=== PATIENT | male | born 1950 | race Two or more races ===

== ENCOUNTER → 2017-01-20 | Outpatient (CLI) | payer MEDICARE, OTHER ==
[~2017-01-20] MED LIST: AMLO5TAB2 PO; CLOP75TA28 PO; FENO134C PO; FURO20TA3 PO; HYDR-4663 PO; MET50T PO; METF500T PO; NOR10T; POTA10TA75 PO; RANO1000 PO
[2017-01-20 15:00] VITALS: BP 108/62
[2017-01-20 16:19] LABS: Basophils # (auto) 0.1 uL; Basophils % (auto) 0.6 % (0.0-2.0); CONDITION Y; Eosinophils # (auto) 0.7 uL; Hematocrit 42.8 % (41.0-53.0); Hemoglobin 14.6 g/dL (13.5-17.5); Lymphocytes # (auto) 1.4 uL; Lymphocytes % (auto) 10.5 % (10.0-50.0); Mean Corpuscular Hemoglobin 28.8 pg (28.0-32.0); Mean Corpuscular Hgb Conc. 34.2 g/dL (32.0-36.0); Mean Corpuscular Volume 84.3 fL (80.0-100.0); Mean Platelet Volume 10.9 fL (7.4-10.4); Monocytes # (auto) 1.1 uL; Monocytes % (auto) 8.1 % (0.0-12.0); Neutrophils % (auto) 75.8 % (37.0-80.0); Platelet Count (auto) 200 10^3/uL (140-450); Red Cell Distribution Width 17.6 % (11.6-16.0); SUSPECT SEE PRINTOUT; White Blood Cell 13.2 10^3/uL (4.4-10.8)
[2017-01-20 16:34] LABS: BUN/Creatinine Ratio 20.6; Calcium 9.3 mg/dL (8.5-10.1); Magnesium 2.5 mg/dL (1.6-2.6); Potassium 4.4 mmol/L (3.5-5.1)
[2017-01-20 16:41] LABS: B-Type Natriuretic Peptide 256.55 pg/mL (0-100)
[2017-01-20 16:45] LABS: Temperature: 22.2 C (20.0-25.0)
== END | disposition home or self-care (01) ==
LOC: CHF HDHVI 13:37
PROVIDERS: ATTEND Internal Medicine Cardiovascular Disease
DX: I11.0 Hypertensive heart disease with heart failure (principal); I50.9 Heart failure, unspecified; D64.9 Anemia, unspecified; E83.42 Hypomagnesemia; E11.9 Type 2 diabetes mellitus without complications; E78.5 Hyperlipidemia, unspecified; R94.2 Abnormal results of pulmonary function studies; Z95.5 Presence of coronary angioplasty implant and graft
CPT/HCPCS: 36415; 80048; 83735; 83880; 85025; 93005; 93701; 94620; G0463

== ENCOUNTER → 2017-01-24 | Outpatient (CLI) | payer MEDICARE, OTHER ==
[2017-01-24 09:30] VITALS: BP 118/58
== END | disposition home or self-care (01) ==
LOC: CHF HDHVI 11:32
PROVIDERS: ATTEND Internal Medicine Cardiovascular Disease
DX: I11.0 Hypertensive heart disease with heart failure (principal); I50.9 Heart failure, unspecified; I25.10 Atherosclerotic heart disease of native coronary artery without angina pectoris; E78.5 Hyperlipidemia, unspecified
CPT/HCPCS: G0463

== ENCOUNTER → 2017-02-14 | Outpatient (CLI) | payer MEDICARE, OTHER ==
[~2017-02-14] MED LIST changes: +CYANOCOBALAMIN (B-12) 1000 MCG/1 ML VIAL IM ONE; +CYANOCOBALAMIN (B-12) 1000 MCG/1 ML VIAL ONE
[2017-02-14 08:49] VITALS: BP 127/65
[2017-02-14 09:00] VITALS: BP 124/67
[2017-02-14 12:19] LABS: Basophils # (auto) 0 uL; Basophils % (auto) 0.5 % (0.0-2.0); CONDITION Y; Eosinophils # (auto) 0.7 uL; Eosinophils % (auto) 7.3 % (0.0-7.0); Hematocrit 44.7 % (41.0-53.0); Hemoglobin 15.1 g/dL (13.5-17.5); Lymphocytes # (auto) 1.1 uL; Lymphocytes % (auto) 12.3 % (10.0-50.0); Mean Corpuscular Hemoglobin 28.3 pg (28.0-32.0); Mean Corpuscular Hgb Conc. 33.7 g/dL (32.0-36.0); Mean Corpuscular Volume 83.8 fL (80.0-100.0); Monocytes # (auto) 0.7 uL; Monocytes % (auto) 7.9 % (0.0-12.0); Neutrophils # (auto) 6.5 uL; Platelet Count (auto) 174 10^3/uL (140-450); Red Cell Distribution Width 16.7 % (11.6-16.0)
[2017-02-14 12:23] LABS: Potassium 4.3 mmol/L (3.5-5.1)
== END | disposition home or self-care (01) ==
LOC: CHF HDHVI 08:10
PROVIDERS: ATTEND Internal Medicine Cardiovascular Disease
DX: E87.6 Hypokalemia (principal); R94.4 Abnormal results of kidney function studies; D64.9 Anemia, unspecified; I13.0 Hypertensive heart and chronic kidney disease with heart failure and stage 1 through stage 4 chronic kidney disease, or unspecified chronic kidney disease; I50.9 Heart failure, unspecified; N18.2 Chronic kidney disease, stage 2 (mild)
CPT/HCPCS: 36415; 82565; 84132; 84520; 85025; 96372; G0463; J3420

== ENCOUNTER → 2017-03-21 | Outpatient (CLI) | payer MEDICARE, OTHER ==
[~2017-03-21] MED LIST changes: -CYANOCOBALAMIN (B-12) 1000 MCG/1 ML VIAL IM ONE; -CYANOCOBALAMIN (B-12) 1000 MCG/1 ML VIAL ONE
[2017-03-21 08:55] VITALS: BP 111/57
== END | disposition home or self-care (01) ==
LOC: CHF HDHVI 08:36
PROVIDERS: ATTEND Internal Medicine Cardiovascular Disease
DX: I13.0 Hypertensive heart and chronic kidney disease with heart failure and stage 1 through stage 4 chronic kidney disease, or unspecified chronic kidney disease (principal); I50.9 Heart failure, unspecified; N18.2 Chronic kidney disease, stage 2 (mild); K21.9 Gastro-esophageal reflux disease without esophagitis; I25.10 Atherosclerotic heart disease of native coronary artery without angina pectoris; Z95.1 Presence of aortocoronary bypass graft
CPT/HCPCS: 82962; 93701; G0463

== ENCOUNTER → 2017-06-27 | Outpatient (CLI) | payer MEDICARE, OTHER ==
[~2017-06-27] MED LIST changes: +ASPI81TA27 PO; +ATOR80TA PO; -HYDR-4663 PO; +HYDR-4683 PO; +ISOS1TAB37 PO; +IVAB1.7T PO; +METO50TA7 PO; -NOR10T; +NOR10T PO; +RANO500T2 PO; +SACU1TAB PO
[2017-06-27 11:00] VITALS: BP 139/65
[2017-06-27 11:42] VITALS: BP 127/59
[2017-06-27 16:32] LABS: Basophils # (auto) 0 uL; Basophils % (auto) 0.5 % (0.0-2.0); Eosinophils # (auto) 0.2 uL; Eosinophils % (auto) 2.5 % (0.0-7.0); Hematocrit 50.5 % (41.0-53.0); Hemoglobin 17.1 g/dL (13.5-17.5); Lymphocytes # (auto) 1.3 uL; Lymphocytes % (auto) 13.2 % (10.0-50.0); Mean Corpuscular Hemoglobin 30.4 pg (28.0-32.0); Mean Corpuscular Volume 89.6 fL (80.0-100.0); Monocytes # (auto) 1.1 uL; Monocytes % (auto) 10.8 % (0.0-12.0); Neutrophils # (auto) 7.1 uL; Nucleated Red Blood Cells % 0.2 %; Platelet Count (auto) 145 10^3/uL (140-450); Red Blood Cells 5.63 10^6/uL (4.5-5.90); Red Cell Distribution Width 15.7 % (11.8-14.3); White Blood Cell 9.7 10^3/uL (4.4-10.8)
[2017-06-27 16:36] LABS: BUN/Creatinine Ratio 20.4; Calcium 8.8 mg/dL (8.5-10.1); Magnesium 2.3 mg/dL (1.6-2.6); Potassium 4.7 mmol/L (3.5-5.1)
== END | disposition home or self-care (01) ==
LOC: CHF HDHVI 10:23
PROVIDERS: ATTEND Internal Medicine Cardiovascular Disease
DX: I11.0 Hypertensive heart disease with heart failure (principal); I50.9 Heart failure, unspecified; D64.9 Anemia, unspecified; E55.9 Vitamin D deficiency, unspecified; D51.9 Vitamin B12 deficiency anemia, unspecified; E11.9 Type 2 diabetes mellitus without complications; I25.10 Atherosclerotic heart disease of native coronary artery without angina pectoris; I48.91 Unspecified atrial fibrillation; Z95.1 Presence of aortocoronary bypass graft
CPT/HCPCS: 36415; 80048; 82306; 82607; 83036; 83735; 83880; 85025; 93701; 94618; G0463

== ENCOUNTER → 2017-07-04 | Outpatient (CLI) | payer MEDICARE, OTHER | END | disposition home or self-care (01) | LOC: Rad HDHVI 15:54 | PROVIDERS: ATTEND Internal Medicine Cardiovascular Disease | DX: R07.89 Other chest pain (principal) | CPT/HCPCS: 93306 ==

== ENCOUNTER → 2017-07-05 | Outpatient (CLI) | payer MEDICARE, OTHER ==
[~2017-07-05] VITALS: Ht 157.5 cm; Wt 81.6 kg
[~2017-07-05] MED LIST changes: +ADENOSINE 69 MG in GIVE UN-DILUTED 0 ML IV ONE; +ADENOSINE 90 MG/30 ML INJ IV ONE
== END | disposition home or self-care (01) ==
LOC: Rad HDHVI 14:11
PROVIDERS: ATTEND Internal Medicine Cardiovascular Disease
DX: Z09 Encounter for follow-up examination after completed treatment for conditions other than malignant neoplasm (principal); I10 Essential (primary) hypertension; I25.10 Atherosclerotic heart disease of native coronary artery without angina pectoris; E11.9 Type 2 diabetes mellitus without complications; E78.00 Pure hypercholesterolemia, unspecified; Z95.1 Presence of aortocoronary bypass graft
CPT/HCPCS: 78452; 93005; 96374; 96375; A9500; J0153

== ENCOUNTER → 2017-08-07 | Outpatient (CLI) | payer MEDICARE, OTHER ==
[~2017-08-07] MED LIST changes: -ADENOSINE 69 MG in GIVE UN-DILUTED 0 ML IV ONE; -ADENOSINE 90 MG/30 ML INJ IV ONE
[2017-08-07 11:00] VITALS: BP 110/49
[2017-08-07 11:40] VITALS: BP 106/57
[2017-08-07 16:51] LABS: Basophils # (auto) 0 uL; Basophils % (auto) 0.4 % (0.0-2.0); Eosinophils # (auto) 0.2 uL; Eosinophils % (auto) 2.5 % (0.0-7.0); Hematocrit 44.6 % (41.0-53.0); Lymphocytes # (auto) 1.4 uL; Mean Corpuscular Hemoglobin 30.6 pg (28.0-32.0); Mean Corpuscular Hgb Conc. 33.7 g/dL (32.0-36.0); Mean Corpuscular Volume 90.7 fL (80.0-100.0); Monocytes # (auto) 0.7 uL; Neutrophils # (auto) 4.9 uL; Neutrophils % (auto) 68.1 % (37.0-80.0); Nucleated Red Blood Cells % 0.2 %; Red Blood Cells 4.91 10^6/uL (4.5-5.90); Red Cell Distribution Width 14.5 % (11.8-14.3); White Blood Cell 7.1 10^3/uL (4.4-10.8)
[2017-08-07 17:07] LABS: BUN/Creatinine Ratio 23.4; Potassium 4.5 mmol/L (3.5-5.1)
[2017-08-07 17:31] LABS: Platelet Count (auto) 138 10^3/uL (140-450)
[2017-08-07 18:21] LABS: INR 1.12 (0.9-1.15); Partial Thromboplastin Time 33.6 sec (22.64-33.71); Prothrombin Time 12.2 sec (9.37-12.3)
== END | disposition home or self-care (01) ==
LOC: Rad HDHVI 10:44
PROVIDERS: ATTEND Internal Medicine Cardiovascular Disease
DX: Z01.818 Encounter for other preprocedural examination (principal); I70.0 Atherosclerosis of aorta; E78.00 Pure hypercholesterolemia, unspecified; D64.9 Anemia, unspecified; R79.1 Abnormal coagulation profile; I10 Essential (primary) hypertension; Z95.1 Presence of aortocoronary bypass graft
CPT/HCPCS: 36415; 80048; 82962; 85025; 85610; 85730; 93005; G0463; 71046

== ENCOUNTER 2017-08-10 08:33 | Day surgery (SDC) | payer MEDICARE, OTHER ==
[~2017-08-10 08:33] MED LIST changes: -ASPI81TA27 PO; -ATOR80TA PO; -ISOS1TAB37 PO; -IVAB1.7T PO; -METO50TA7 PO; -RANO500T2 PO; -SACU1TAB PO
[2017-08-10] MEDS ORDERED: LIDOCAINE 2%HCL (LOCAL ANESTH.) INJ 20ML MDV ONE (10:32)
[2017-08-10] MEDS ORDERED: IOHEXOL 350 MG/ML 100ML IJ ONE (10:32)
[2017-08-10] MEDS ORDERED: MIDAZOLAM HCL 1MG/1ML-2 ML VIAL ONE (10:47)
[2017-08-10] MEDS ORDERED: fentaNYL CITRATE 100 MCG/2 ML VL ONE (10:47)
[2017-08-10] MEDS ORDERED: ANGIOMAX 250 MG VIAL IV ONE (10:47)
[2017-08-10] MEDS ORDERED: SODIUM CHL 0.9% 0 ML ONE (10:48)
== END 2017-08-10 13:55 | disposition home or self-care (01) ==
LOC: CATH 08:33
PROVIDERS: ATTEND Internal Medicine Cardiovascular Disease
DX: I25.10 Atherosclerotic heart disease of native coronary artery without angina pectoris (principal); E78.5 Hyperlipidemia, unspecified; Z95.1 Presence of aortocoronary bypass graft; I50.9 Heart failure, unspecified; I10 Essential (primary) hypertension; Z86.73 Personal history of transient ischemic attack (TIA), and cerebral infarction without residual deficits; E11.9 Type 2 diabetes mellitus without complications
CPT/HCPCS: 93458; C1760; C1894; J1644; J2250; J3010; J7030; Q9967; 99152

== ENCOUNTER 2017-09-08 11:15 | Inpatient (IN) | payer MEDICARE, OTHER ==
[~2017-09-08] VITALS: Ht 157.5 cm; Wt 78.5 kg
[2017-09-08 11:59] LABS: Basophils # (auto) 0 uL; Basophils % (auto) 0.6 % (0.0-2.0); Eosinophils # (auto) 0.3 uL; Eosinophils % (auto) 4.3 % (0.0-7.0); Hematocrit 48.4 % (41.0-53.0); Hemoglobin 16.5 g/dL (13.5-17.5); Lymphocytes # (auto) 0.6 uL; Lymphocytes % (auto) 7.3 % (10.0-50.0); Mean Corpuscular Hemoglobin 30.5 pg (28.0-32.0); Mean Corpuscular Hgb Conc. 34.1 g/dL (32.0-36.0); Mean Corpuscular Volume 89.6 fL (80.0-100.0); Monocytes % (auto) 12.7 % (0.0-12.0); Neutrophils # (auto) 5.8 uL; Neutrophils % (auto) 75.1 % (37.0-80.0); Nucleated Red Blood Cells % 0.1 %; Platelet Count (auto) 125 10^3/uL (140-450); Red Blood Cells 5.41 10^6/uL (4.5-5.90); Red Cell Distribution Width 13.9 % (11.8-14.3); White Blood Cell 7.7 10^3/uL (4.4-10.8)
[2017-09-08 12:10] LABS: INR 1.17 (0.9-1.15); Partial Thromboplastin Time 32.7 sec (22.64-33.71); Prothrombin Time 12.8 sec (9.37-12.3)
[2017-09-08 12:37] LABS: Alanine Aminotransferase 28 U/L (16-61); Albumin 4.2 g/dL (3.4-5.0); Alkaline Phosphatase 71 U/L (45-117); Anion Gap 9 (5-15); Aspartate Aminotransferase 47 U/L (15-37); BUN/Creatinine Ratio 14.4; Bilirubin, Total 0.8 mg/dL (0.2-1.0); Blood Urea Nitrogen 18 mg/dL (7-18); Calcium 8.8 mg/dL (8.5-10.1); Carbon Dioxide 24 mmol/L (21-32); Chloride 103 mmol/L (98-107); GFR African American 74 mL/min; GFR Non-African American 61 mL/min; Glucose 108 mg/dL (74-106); Magnesium 2.3 mg/dL (1.6-2.6); Potassium 5.2 mmol/L (3.5-5.1); Sodium 136 mmol/L (136-145); Total Protein 8.3 g/dL (6.4-8.2)
[2017-09-08] MEDS ORDERED: FUROSEMIDE 40 MG/4 ML VIAL IV ONE (13:15)
[2017-09-08] MEDS ORDERED: LACTULOSE 20Gm/30ML SOLN PO PRN (17:00)
[2017-09-08] MEDS ORDERED: ACETAMINOPHEN 500 MG TAB PO PRN (17:00)
[2017-09-08] MEDS ORDERED: PROMETHAZINE HCL 25 MG/ML 1ML IV PRN (17:00)
[2017-09-08] MEDS ORDERED: LORazepam 0.5 MG TAB PO PRN (17:00)
[2017-09-08] MEDS ORDERED: NITROGLYCERIN 0.4 MG SL TAB SL PRN (17:00)
[2017-09-08] MEDS: InsuLIN REG 1unit/0.01ml Soln (100units/ml) SC SCH ×2 (17:00→22:00)
[2017-09-08] MEDS ORDERED: DEXTROSE (50%) 50ML SYRG IV PRN (17:00)
[2017-09-08] MEDS: ACCU-CHEK COMFORT CURVE STRIP VI SCH ×2 (17:26→22:02)
[2017-09-08] MEDS: NITROGLYCERIN 0.2MG/HR TOPICAL PATCH TD SCH (17:30)
[2017-09-08] MEDS: MORPHINE SULFATE 4 MG/ML SYR/VIAL IV PRN ×2 (17:45→22:44)
[2017-09-08] MEDS ORDERED: ALBUTEROL SULF 2.5 MG/0.5ML(0.5%) NEB SOLN NEB PRN (18:15)
[2017-09-08] MEDS: DOXYCYCLINE HYC 100MG/250ML 250 ML IV SCH (18:30)
[2017-09-08 18:44] LABS: Urine Bacteria NONE SEEN /hpf (None Seen); Urine Blood Negative /uL (Negative); Urine Specific Gravity 1.006 (1.001-1.035); Urine WBC <1 /hpf (0 - 3)
[2017-09-08 19:00] LABS: Alcohol, Urine < 3.0 mg/dL (0-5); Amphetamine Screen, Urine NEGATIVE (NEGATIVE); Barbiturate Scree,Urine NEGATIVE (NEGATIVE); Benzodiazephine Screen, Urine NEGATIVE (NEGATIVE); Cannabinoid Screen, Urine NEGATIVE (NEGATIVE); Cocaine Screen, Urine NEGATIVE (NEGATIVE); Opiate Scree,Urine POSITIVE (NEGATIVE); Phencyclidine Screen, Urine NEGATIVE (NEGATIVE)
[2017-09-08 19:40] VITALS: BP 115/64
[2017-09-08] MEDS: HYDROcodone-ACET 5/325MG TAB PO PRN (20:36)
[2017-09-08] MEDS: METOPROLOL TARTRATE 50 MG TAB PO SCH (21:59)
[2017-09-08] MEDS: amLODIPine BESYLATE 5 MG TAB PO SCH (22:00)
[2017-09-08] MEDS: TEMAZEPAM 15 MG CAP PO PRN (22:10)
[2017-09-09] MEDS: ALBUTEROL SULF 2.5 MG/0.5ML(0.5%) NEB SOLN NEB SCH ×3 (00:45→18:34)
[2017-09-09 02:01] VITALS: BP 115/64
[2017-09-09] MEDS: MORPHINE SULFATE 4 MG/ML SYR/VIAL IV PRN ×6 (04:34→21:59)
[2017-09-09] MEDS ORDERED: RANO500T2 PO (05:03)
[2017-09-09] MEDS ORDERED: METO50TA7 PO (05:03)
[2017-09-09] MEDS ORDERED: IVAB1.7T PO (05:03)
[2017-09-09] MEDS ORDERED: ISOS1TAB37 PO (05:03)
[2017-09-09] MEDS ORDERED: ASPI81TA27 PO (05:03)
[2017-09-09] MEDS ORDERED: SACU1TAB PO (05:03)
[2017-09-09] MEDS ORDERED: ATOR80TA PO (05:04)
[2017-09-09 05:42] VITALS: BP 107/64
[2017-09-09] MEDS: DOXYCYCLINE HYC 100MG/250ML 250 ML IV SCH ×2 (05:59→18:15)
[2017-09-09] MEDS: ACCU-CHEK COMFORT CURVE STRIP VI SCH ×4 (05:59→22:03)
[2017-09-09] MEDS: InsuLIN REG 1unit/0.01ml Soln (100units/ml) SC SCH ×4 (05:59→22:00)
[2017-09-09 07:37] LABS: Basophils # (auto) 0 uL; Basophils % (auto) 0.6 % (0.0-2.0); Eosinophils # (auto) 0.1 uL; Hematocrit 46.7 % (41.0-53.0); Hemoglobin 15.6 g/dL (13.5-17.5); Lymphocytes # (auto) 0.8 uL; Lymphocytes % (auto) 13.3 % (10.0-50.0); Mean Corpuscular Hemoglobin 30.1 pg (28.0-32.0); Mean Corpuscular Hgb Conc. 33.5 g/dL (32.0-36.0); Monocytes # (auto) 0.9 uL; Monocytes % (auto) 15.8 % (0.0-12.0); Neutrophils # (auto) 3.9 uL; Neutrophils % (auto) 68.3 % (37.0-80.0); Nucleated Red Blood Cells % 0.2 %; Platelet Count (auto) 113 10^3/uL (140-450); Red Blood Cells 5.19 10^6/uL (4.5-5.90); Red Cell Distribution Width 13.8 % (11.8-14.3); White Blood Cell 5.7 10^3/uL (4.4-10.8)
[2017-09-09] MEDS: HYDROcodone-ACET 5/325MG TAB PO PRN (07:47)
[2017-09-09 08:06] LABS: Albumin 3.7 g/dL (3.4-5.0); BUN/Creatinine Ratio 17.4; Bilirubin, Total 0.9 mg/dL (0.2-1.0); Calcium 8.6 mg/dL (8.5-10.1); Potassium 4.4 mmol/L (3.5-5.1); Total Protein 7.6 g/dL (6.4-8.2)
[2017-09-09 09:00] VITALS: BP 120/74
[2017-09-09] MEDS: HYDROcodone-ACET 10/325MG TAB PO PRN ×3 (09:12→16:32)
[2017-09-09] MEDS: POTASSIUM CHL 10 Meq TABLET PO SCH ×2 (09:59→22:00)
[2017-09-09] MEDS: FUROSEMIDE 20 MG TAB PO SCH ×2 (09:59→22:00)
[2017-09-09] MEDS: ENOXAPARIN SOD 40 MG/0.4 ML SYRINGE SC SCH (09:59)
[2017-09-09] MEDS: amLODIPine BESYLATE 5 MG TAB PO SCH ×2 (10:00→22:00)
[2017-09-09] MEDS ORDERED: FUROSEMIDE 40 MG/4 ML VIAL IV SCH (10:00)
[2017-09-09] MEDS ORDERED: POTASSIUM CHL 20 Meq TABLET PO SCH (10:00)
[2017-09-09] MEDS: PANTOPRAZOLE 40 MG TAB PO SCH (10:00)
[2017-09-09] MEDS: NITROGLYCERIN 0.2MG/HR TOPICAL PATCH TD SCH (10:00)
[2017-09-09] MEDS: ASPirin 81 mg TAB PO SCH (10:00)
[2017-09-09] MEDS: Fenofibrate 134 MG TAB PO SCH (10:00)
[2017-09-09] MEDS: CLOPIDOGREL BISULFATE 75 MG TAB PO SCH (10:00)
[2017-09-09] MEDS ORDERED: ENALAPRIL MALEATE 2.5 MG TAB PO SCH (10:00)
[2017-09-09] MEDS: guaiFENesin-CODEINE LIQUID 5 ML UD GT PRN ×3 (11:15→20:23)
[2017-09-09 13:00] VITALS: BP 123/76
[2017-09-09] MEDS: RANOLAZINE ER 500 MG TAB PO SCH (14:43)
[2017-09-09] MEDS: METOPROLOL TARTRATE 50 MG TAB PO SCH ×2 (14:43→22:01)
[2017-09-09 16:58] VITALS: BP 122/62
[2017-09-09 21:46] VITALS: BP 122/66
[2017-09-09] MEDS: TEMAZEPAM 15 MG CAP PO PRN (22:19)
[2017-09-10] MEDS: guaiFENesin-CODEINE LIQUID 5 ML UD GT PRN ×2 (04:26→10:19)
[2017-09-10 05:00] VITALS: BP 117/66
[2017-09-10] MEDS: ALBUTEROL SULF 2.5 MG/0.5ML(0.5%) NEB SOLN NEB SCH ×4 (05:39→18:00)
[2017-09-10] MEDS: DOXYCYCLINE HYC 100MG/250ML 250 ML IV SCH (05:54)
[2017-09-10] MEDS: InsuLIN REG 1unit/0.01ml Soln (100units/ml) SC SCH ×4 (06:10→21:22)
[2017-09-10] MEDS: ACCU-CHEK COMFORT CURVE STRIP VI SCH ×4 (06:11→21:23)
[2017-09-10] MEDS: HYDROcodone-ACET 10/325MG TAB PO PRN ×5 (07:34→22:45)
[2017-09-10] MEDS: MORPHINE SULFATE 4 MG/ML SYR/VIAL IV PRN ×3 (07:54→18:10)
[2017-09-10 09:00] VITALS: BP 98/55
[2017-09-10] MEDS: Fenofibrate 134 MG TAB PO SCH (10:00)
[2017-09-10] MEDS: ENOXAPARIN SOD 40 MG/0.4 ML SYRINGE SC SCH (10:00)
[2017-09-10] MEDS: NITROGLYCERIN 0.2MG/HR TOPICAL PATCH TD SCH (10:00)
[2017-09-10] MEDS: LEVOFLOXACIN 500MG 100 ML IV SCH (10:16)
[2017-09-10] MEDS: amLODIPine BESYLATE 5 MG TAB PO SCH ×2 (10:17→21:17)
[2017-09-10] MEDS: ASPirin 81 mg TAB PO SCH (10:17)
[2017-09-10] MEDS: FUROSEMIDE 20 MG TAB PO SCH ×2 (10:17→21:18)
[2017-09-10] MEDS: CLOPIDOGREL BISULFATE 75 MG TAB PO SCH (10:18)
[2017-09-10] MEDS: POTASSIUM CHL 10 Meq TABLET PO SCH ×2 (10:18→21:17)
[2017-09-10] MEDS: PANTOPRAZOLE 40 MG TAB PO SCH (10:18)
[2017-09-10 10:37] LABS: Basophils # (auto) 0 uL; Basophils % (auto) 0.5 % (0.0-2.0); Eosinophils # (auto) 0.3 uL; Hematocrit 47.6 % (41.0-53.0); Hemoglobin 16.1 g/dL (13.5-17.5); Lymphocytes # (auto) 0.9 uL; Lymphocytes % (auto) 12.9 % (10.0-50.0); Mean Corpuscular Hemoglobin 30.3 pg (28.0-32.0); Mean Corpuscular Hgb Conc. 33.8 g/dL (32.0-36.0); Mean Corpuscular Volume 89.6 fL (80.0-100.0); Neutrophils # (auto) 4.7 uL; Neutrophils % (auto) 68.6 % (37.0-80.0); Platelet Count (auto) 115 10^3/uL (140-450); Red Blood Cells 5.31 10^6/uL (4.5-5.90); Red Cell Distribution Width 13.9 % (11.8-14.3); White Blood Cell 6.9 10^3/uL (4.4-10.8)
[2017-09-10 10:54] LABS: Albumin 3.6 g/dL (3.4-5.0); BUN/Creatinine Ratio 20.3; Calcium 8.7 mg/dL (8.5-10.1); Potassium 4.2 mmol/L (3.5-5.1)
[2017-09-10 10:57] LABS: Bilirubin, Total 0.5 mg/dL (0.2-1.0); Total Protein 7.5 g/dL (6.4-8.2)
[2017-09-10] MEDS: METOPROLOL TARTRATE 50 MG TAB PO SCH ×2 (12:51→21:18)
[2017-09-10] MEDS: RANOLAZINE ER 500 MG TAB PO SCH (12:52)
[2017-09-10 13:00] VITALS: BP 115/51
[2017-09-10 16:32] VITALS: BP 113/63
[2017-09-10] MEDS: TEMAZEPAM 15 MG CAP PO PRN (21:17)
[2017-09-10 21:54] VITALS: BP 122/63
[2017-09-11 05:00] VITALS: BP 114/50
[2017-09-11] MEDS: ALBUTEROL SULF 2.5 MG/0.5ML(0.5%) NEB SOLN NEB SCH ×3 (05:39→11:07)
[2017-09-11] MEDS: InsuLIN REG 1unit/0.01ml Soln (100units/ml) SC SCH ×2 (06:05→11:30)
[2017-09-11] MEDS: ACCU-CHEK COMFORT CURVE STRIP VI SCH ×2 (06:07→12:00)
[2017-09-11] MEDS: HYDROcodone-ACET 10/325MG TAB PO PRN ×3 (08:01→15:18)
[2017-09-11] MEDS: MORPHINE SULFATE 4 MG/ML SYR/VIAL IV PRN ×2 (09:04→11:32)
[2017-09-11] MEDS: CARISOPRODOL 350 MG TAB PO PRN ×2 (09:07→15:18)
[2017-09-11 09:11] VITALS: BP 118/64
[2017-09-11] MEDS: ENOXAPARIN SOD 40 MG/0.4 ML SYRINGE SC SCH (10:00)
[2017-09-11] MEDS: NITROGLYCERIN 0.2MG/HR TOPICAL PATCH TD SCH (10:00)
[2017-09-11] MEDS: Fenofibrate 134 MG TAB PO SCH (10:00)
[2017-09-11] MEDS: POTASSIUM CHL 10 Meq TABLET PO SCH (10:24)
[2017-09-11] MEDS: LEVOFLOXACIN 500MG 100 ML IV SCH (10:24)
[2017-09-11] MEDS: ASPirin 81 mg TAB PO SCH (10:24)
[2017-09-11] MEDS: FUROSEMIDE 20 MG TAB PO SCH (10:25)
[2017-09-11] MEDS: PANTOPRAZOLE 40 MG TAB PO SCH (10:25)
[2017-09-11] MEDS: CLOPIDOGREL BISULFATE 75 MG TAB PO SCH (10:25)
[2017-09-11] MEDS: amLODIPine BESYLATE 5 MG TAB PO SCH (10:25)
[2017-09-11] MEDS: RANOLAZINE ER 500 MG TAB PO SCH (10:27)
[2017-09-11 12:54] VITALS: BP 118/4
== END 2017-09-11 15:30 | disposition home or self-care (01) | DRG 292 ==
LOC: ER 11:15 → TELE 11:16 → TELE-CENTR 19:43
PROVIDERS: ADMIT Internal Medicine; ATTEND Family Medicine
DX: I11.0 Hypertensive heart disease with heart failure (principal); N17.9 Acute kidney failure, unspecified; D69.6 Thrombocytopenia, unspecified; Z95.1 Presence of aortocoronary bypass graft; I50.33 Acute on chronic diastolic (congestive) heart failure; E11.9 Type 2 diabetes mellitus without complications; E78.5 Hyperlipidemia, unspecified; I25.10 Atherosclerotic heart disease of native coronary artery without angina pectoris; I70.0 Atherosclerosis of aorta; J20.9 Acute bronchitis, unspecified; K21.9 Gastro-esophageal reflux disease without esophagitis; Z82.49 Family history of ischemic heart disease and other diseases of the circulatory system; Z83.3 Family history of diabetes mellitus
CPT/HCPCS: 36415; 71046; 80053; 80061; 80307; 81001; 82550; 82962; 83036; 83735; 83880; 84443; 84484; 85025; 85379; 85610; 85652; 85730; 86141; 93005; 94640; 96361; 96374; J1956; J3490

== ENCOUNTER → 2017-10-05 | Outpatient (CLI) | payer MEDICARE, OTHER ==
[~2017-10-05] MED LIST changes: +ASPI81TA27 PO; +ATOR80TA PO; -FENO134C PO; -HYDR-4683 PO; +ISOS1TAB37 PO; +IVAB1.7T PO; -MET50T PO; +METO50TA7 PO; -RANO1000 PO; +RANO500T2 PO; +SACU1TAB PO
== END | disposition home or self-care (01) ==
LOC: Rad HDHVI 13:39
PROVIDERS: ATTEND Internal Medicine Cardiovascular Disease
DX: I08.1 Rheumatic disorders of both mitral and tricuspid valves (principal); I20.9 Angina pectoris, unspecified; I25.2 Old myocardial infarction; E11.9 Type 2 diabetes mellitus without complications; E78.5 Hyperlipidemia, unspecified; I10 Essential (primary) hypertension
CPT/HCPCS: 93306

== ENCOUNTER → 2017-10-23 | Outpatient (CLI) | payer MEDICARE, OTHER ==
[~2017-10-23] VITALS: Ht 157.5 cm; Wt 79.4 kg
== END | disposition home or self-care (01) ==
LOC: Rad HDHVI 09:36
PROVIDERS: ATTEND Internal Medicine Cardiovascular Disease
DX: I25.5 Ischemic cardiomyopathy (principal); I11.0 Hypertensive heart disease with heart failure; I50.23 Acute on chronic systolic (congestive) heart failure; I20.9 Angina pectoris, unspecified; E11.9 Type 2 diabetes mellitus without complications; K21.9 Gastro-esophageal reflux disease without esophagitis; E78.5 Hyperlipidemia, unspecified
CPT/HCPCS: 78472; 96374; A9505; 96375

== ENCOUNTER → 2017-11-15 | Outpatient (CLI) | payer MEDICARE, OTHER ==
[2017-11-15 08:45] VITALS: BP 126/69
[2017-11-15 09:16] VITALS: BP 135/72
[2017-11-15 12:06] LABS: Basophils # (auto) 0 uL; Basophils % (auto) 0.5 % (0.0-2.0); Eosinophils # (auto) 0.3 uL; Eosinophils % (auto) 3.7 % (0.0-7.0); Hematocrit 49.7 % (41.0-53.0); Hemoglobin 17.2 g/dL (13.5-17.5); Lymphocytes # (auto) 1.6 uL; Lymphocytes % (auto) 19.9 % (10.0-50.0); Mean Corpuscular Hemoglobin 30.5 pg (28.0-32.0); Mean Corpuscular Hgb Conc. 34.6 g/dL (32.0-36.0); Mean Corpuscular Volume 88.2 fL (80.0-100.0); Monocytes # (auto) 0.8 uL; Monocytes % (auto) 10.1 % (0.0-12.0); Neutrophils # (auto) 5.3 uL; Neutrophils % (auto) 65.8 % (37.0-80.0); Nucleated Red Blood Cells % 0.4 %; Platelet Count (auto) 118 10^3/uL (140-450); Red Blood Cells 5.63 10^6/uL (4.5-5.90); Red Cell Distribution Width 14.8 % (11.8-14.3); White Blood Cell 8.1 10^3/uL (4.4-10.8)
[2017-11-15 12:18] LABS: INR 1.07 (0.9-1.15); Partial Thromboplastin Time 32.2 sec (23.78-33.04); Prothrombin Time 11.4 sec (9.27-12.13)
[2017-11-15 12:28] LABS: BUN/Creatinine Ratio 22.5; Calcium 8.5 mg/dL (8.5-10.1); Potassium 4.4 mmol/L (3.5-5.1)
== END | disposition home or self-care (01) ==
LOC: Rad HDHVI 08:36
PROVIDERS: ATTEND Internal Medicine Cardiovascular Disease
DX: Z01.818 Encounter for other preprocedural examination (principal); E11.9 Type 2 diabetes mellitus without complications; I25.10 Atherosclerotic heart disease of native coronary artery without angina pectoris; I70.0 Atherosclerosis of aorta; E78.5 Hyperlipidemia, unspecified; K21.9 Gastro-esophageal reflux disease without esophagitis; Z79.899 Other long term (current) drug therapy
CPT/HCPCS: 36415; 71046; 80048; 85025; 85610; 85730; 93005; G0463

== ENCOUNTER 2020-04-25 14:19 | Inpatient (IN) | payer MEDICARE, OTHER ==
[~2020-04-25] VITALS: Ht 157.5 cm; Wt 82.1 kg
[~2020-04-25 14:19] MED LIST changes: +AMLO5TAB15 PO; -AMLO5TAB2 PO; +ASPI-543 PO; -ASPI81TA27 PO; +METO-6 PO; -METO50TA7 PO
[2020-04-25 15:32] LABS: Basophils # (auto) 0.1 10 ^3/uL (0-0.2); Basophils % (auto) 0.9 % (0.0-2.0); Eosinophils # (auto) 0.3 10 ^3/uL (0-0.8); Eosinophils % (auto) 2.9 % (0.0-7.0); Hematocrit 46.3 % (41.0-53.0); Lymphocytes # (auto) 1.1 10 ^3/uL (0.4-5.4); Lymphocytes % (auto) 12.8 % (10.0-50.0); Mean Corpuscular Hemoglobin 30.3 pg (28.0-32.0); Mean Corpuscular Hgb Conc. 34.6 g/dL (32.0-36.0); Mean Corpuscular Volume 87.7 fL (80.0-100.0); Monocytes # (auto) 0.9 10 ^3/uL (0-1.3); Monocytes % (auto) 9.8 % (0.0-12.0); Neutrophils # (auto) 6.5 10 ^3/uL (1.6-8.6); Neutrophils % (auto) 73.6 % (37.0-80.0); Nucleated Red Blood Cells % 0.2 %; Platelet Count (auto) 140 10^3/uL (140-450); Red Blood Cells 5.28 10^6/uL (4.5-5.90); Red Cell Distribution Width 14.2 % (11.8-14.3); White Blood Cell 8.8 10^3/uL (4.4-10.8)
[2020-04-25] MEDS ORDERED: ONDANSETRON HCL 4 MG/2 ML VIAL IV ONE (15:45)
[2020-04-25] MEDS ORDERED: MORPHINE SULF INJ 2 MG/ML SYRINGE 1ML IV ONE ×2 (15:45→17:00)
[2020-04-25 15:50] LABS: Albumin 4.1 g/dL (3.4-5.0); Anion Gap 5 (5-15); Blood Urea Nitrogen 23 mg/dL (7-18); Calcium 8.8 mg/dL (8.5-10.1); Carbon Dioxide 24 mmol/L (21-32); Chloride 110 mmol/L (98-107); Glucose 105 mg/dL (74-106); Magnesium 2.5 mg/dL (1.6-2.6); Sodium 139 mmol/L (136-145)
[2020-04-25 15:52] LABS: INR 1.18 (0.9-1.15); Partial Thromboplastin Time 30.4 sec (23.0-31.2)
[2020-04-25 15:55] LABS: Alanine Aminotransferase 36 U/L (16-61); Alkaline Phosphatase 109 U/L (45-117); Aspartate Aminotransferase 28 U/L (15-37); BUN/Creatinine Ratio 21.7; Bilirubin, Total 0.7 mg/dL (0.2-1.0); GFR African American 89 mL/min; GFR Non-African American 74 mL/min; Total Protein 7.4 g/dL (6.4-8.2)
[2020-04-25] MEDS ORDERED: DEXTROSE (50%) 50ML SYRG IV PRN (18:45)
[2020-04-25] MEDS ORDERED: MORPHINE SULF INJ 2 MG/ML SYRINGE 1ML IV PRN (18:45)
[2020-04-25] MEDS ORDERED: ACETAMINOPHEN 500 MG TAB PO PRN (18:45)
[2020-04-25] MEDS ORDERED: HYDROcodone-ACET 10/325MG TAB PO PRN (18:45)
[2020-04-25] MEDS ORDERED: ENOXAPARIN SOD 40 MG/0.4 ML SYRINGE SC SCH (18:52)
[2020-04-25] MEDS: FUROSEMIDE 40 MG TAB PO SCH (19:23)
[2020-04-25] MEDS: NITROGLYCERIN 0.4 MG SL TAB SL PRN ×3 (19:26→19:42)
[2020-04-25] MEDS: MORPHINE SULF INJ 2 MG/ML SYRINGE 1ML IV PRN ×2 (19:51→20:24)
--- NOTE | 2020-04-25 20:56 | NUR ---
Chest Pain Reassessment Patient states pain level 5 on a pain scale of 0-10. Per patient, he is comfortable and has no complaints. Will continue to monitor Q1 and PRN.
[2020-04-25] MEDS: RANOLAZINE ER 500 MG TAB PO SCH (21:20)
[2020-04-25] MEDS: POTASSIUM CHL 10 Meq TABLET PO SCH (21:21)
[2020-04-25] MEDS: SACUBITRIL-VALSARTAN 24mg/26mg TAB PO SCH (21:21)
[2020-04-25] MEDS: ACCU-CHEK COMFORT CURVE STRIP VI SCH (21:22)
[2020-04-25] MEDS: InsuLIN REG 1unit/0.01ml Soln (100units/ml) SC SCH (21:24)
[2020-04-25 22:00] VITALS: BP 146/80
[2020-04-25] MEDS ORDERED: TEMAZEPAM 15 MG CAP PO PRN (22:00)
[2020-04-25 22:11] VITALS: BP 146/80
--- NOTE | 2020-04-25 22:30 | NUR ---
Chest Pain Reassessment Patient states that his chest pain increased to a 7 on a pain scale of 0-10/ pressure-like, non radiating. VS are within baseline, patient on 2L NC and has even and unlabored breathing Hospitalist paged, ECG done and shown to hospitalist, Per MD orders x1 STAT trop and give 2mg Morphine IVP, will carry out Will continue to monitor patient Q1 and PRN.
--- NOTE | 2020-04-25 22:38 | NUR ---
Telemetry admit from ER Patient admitted to Telemetry unit. Patient oriented to primary RN, unit, room, bed, and unit policies regarding patient care and visiting hours. Patient now on continuous telemetry monitoring, tele box # 50 and telemetry reading on arrival to unit is sinus rhythm. Patient placed on bedside oxygen 2L NC and tolerating well, weighed by bedscale and encouraged to call if they need something. All questions and concerns addressed, patient verbalized understanding. Safety precautions maintained bed is in lowest position and locked, bed rails x2. Call light within reach. Addendum: 04/26/20 at 0249 by Cyndie Aguilera RN TIME 2037 DATE 04/25/2020
--- NOTE | 2020-04-25 23:10 | NUR ---
Chest pain reassessment Per patient, chest pain is decreasing and is at a 5 on a pain scale of 0-10. No s/s of distress or SOB. Will continue to monitor Q1 and PRN.
--- NOTE | 2020-04-26 00:05 | NUR ---
Rounding Patient resting in bed, no s/s of distress or SOB noted. Will continue to monitor Q1 and PRN.
[2020-04-26 05:00] VITALS: BP 119/69
--- NOTE | 2020-04-26 05:40 | NUR ---
ECG done per MD orders. Placed in hard chart. Will continue to monitor patient Q1 and PRN. No complaints at this time.
[2020-04-26] MEDS: FUROSEMIDE 40 MG TAB PO SCH (06:34)
[2020-04-26] MEDS: InsuLIN REG 1unit/0.01ml Soln (100units/ml) SC SCH ×2 (06:35→11:30)
[2020-04-26] MEDS: ACCU-CHEK COMFORT CURVE STRIP VI SCH ×2 (06:35→11:30)
--- NOTE | 2020-04-26 06:40 | NUR ---
Patient refused insulin Blood sugar 138. Per patient, he does not take any insulin at home and states "I don't need it." Provided education on the uses and side effects of insulin. Patient still refused. Will continue to monitor Q1 and PRN.
--- NOTE | 2020-04-26 07:24 | NUR ---
End of Shift Note Endorsed care to dayshift RN. At this time patient has no s/s of distress or SOB.
--- NOTE | 2020-04-26 07:35 | NUR ---
Opening Shift Note Assumed care of patient, awake and alert. No S/S of distress/SOB or pain. Instructed on POC and to call for assist PRN, will continue to monitor for changes Q1hr and PRN.
[2020-04-26 09:01] VITALS: BP 122/66
[2020-04-26] MEDS: RANOLAZINE ER 500 MG TAB PO SCH (09:52)
[2020-04-26] MEDS: POTASSIUM CHL 10 Meq TABLET PO SCH (09:52)
--- NOTE | 2020-04-26 09:53 | NUR ---
PT. REFUSED THE FOLLOWING MEDICATIONS: CORLANOR AND SACUBRITRIL/VALSARTAN. THIS RN PROVIDED TEACHING; HOWEVER, THE PT. STILL DECLINED MEDICATIONS.
[2020-04-26] MEDS: SACUBITRIL-VALSARTAN 24mg/26mg TAB PO SCH (09:54)
[2020-04-26] MEDS ORDERED: amLODIPine BESYLATE 5 MG TAB PO SCH (10:00)
[2020-04-26] MEDS ORDERED: CLOPIDOGREL BISULFATE 75 MG TAB PO SCH (10:00)
[2020-04-26] MEDS ORDERED: ISOSORBIDE DINITRATE 10 MG TAB PO SCH (10:00)
[2020-04-26] MEDS ORDERED: ASPirin 81 mg TAB PO SCH (10:00)
[2020-04-26] MEDS ORDERED: IVABRADINE 5 MG TAB PO SCH (10:00)
[2020-04-26] MEDS ORDERED: ASPirin-EC 81 mg tab PO SCH (10:00)
[2020-04-26 13:00] VITALS: BP 132/68
--- NOTE | 2020-04-26 13:30 | NUR ---
PT. REFUSED ECHO; DR. AGUILAR IS AWARE.
--- NOTE | 2020-04-26 13:33 | NUR ---
THIS RN LEFT DR. AGUILAR A MESSAGE REGARDING THE PT.'S D-DIMER OF 0.48
--- NOTE | 2020-04-26 16:11 | NUR ---
PT. LEFT AMA; SPOKE TO DAUGHTER JESSE WHO WILL FIND SOMEONE TO PICK HIM UP. PT. OPTED TO WAIT IN THE LOBBY. THIS RN REMOVED TELE BOX AND IV CATHETER WAS REMOVED INTACT AND PRESSURE DRESSING WAS APPLIED.
[2020-04-26 16:44] VITALS: BP 137/88
[2020-04-26] MEDS ORDERED: ATORVASTATIN 20 MG TAB PO SCH (22:00)
--- NOTE | 2020-04-27 11:43 | NUR ---
Did not received page regarding this patient and was not able to go and speak with him before he left AMA
== END 2020-04-26 16:10 | disposition left against medical advice (07) | DRG 292 ==
LOC: ER 14:19 → TELE 14:20 → TELE-WESTW 20:40
PROVIDERS: ADMIT Internal Medicine; ATTEND Internal Medicine
DX: I11.0 Hypertensive heart disease with heart failure (principal); I24.9 Acute ischemic heart disease, unspecified; I50.23 Acute on chronic systolic (congestive) heart failure; I25.10 Atherosclerotic heart disease of native coronary artery without angina pectoris; E66.9 Obesity, unspecified; E78.5 Hyperlipidemia, unspecified; G89.29 Other chronic pain; I25.2 Old myocardial infarction; K29.70 Gastritis, unspecified, without bleeding; Z82.49 Family history of ischemic heart disease and other diseases of the circulatory system; Z83.3 Family history of diabetes mellitus; Z87.891 Personal history of nicotine dependence; Z95.1 Presence of aortocoronary bypass graft; K21.9 Gastro-esophageal reflux disease without esophagitis; E11.42 Type 2 diabetes mellitus with diabetic polyneuropathy; E11.21 Type 2 diabetes mellitus with diabetic nephropathy; E11.51 Type 2 diabetes mellitus with diabetic peripheral angiopathy without gangrene; Z53.29 Procedure and treatment not carried out because of patient's decision for other reasons; Z68.33 Body mass index [BMI] 33.0-33.9, adult
CPT/HCPCS: 36415; 71045; 80053; 82962; 83036; 83735; 83880; 84443; 84484; 85025; 85379; 85610; 85730; 93005; G0378; J2405

== ENCOUNTER 2020-12-01 05:08 | Inpatient (IN) | payer MEDICARE, OTHER ==
[~2020-12-01] VITALS: Ht 154.9 cm; Wt 76.4 kg
[2020-12-01] VITALS (9 sets, daily range): BP systolic 110–137; BP diastolic 62–81
[~2020-12-01 05:08] MED LIST changes: +AMLO-489 PO; -AMLO5TAB15 PO; -IVAB1.7T PO; +POTA-264 PO; -POTA10TA75 PO; -SACU1TAB PO
[2020-12-01] MEDS ORDERED: FUROSEMIDE 40 MG/4 ML VIAL ONE (05:14)
[2020-12-01] MEDS ORDERED: NITROGLYCERIN 2% OINT 1GM PKG TD ONE (05:15)
[2020-12-01] MEDS ORDERED: IPRATROPIUM BROM 0.5 MG/2.5ML INH SOL ONE (05:16)
[2020-12-01] MEDS ORDERED: ALBUTEROL SULF 2.5 MG/0.5ML(0.5%) NEB SOLN ONE (05:16)
[2020-12-01] MEDS ORDERED: LORazepam 2MG/ML-1ML VIAL ONE (05:23)
[2020-12-01] MEDS ORDERED: ALBUTEROL SULF 2.5 MG/0.5ML(0.5%) NEB SOLN NEB ONE (05:30)
[2020-12-01] MEDS ORDERED: LORazepam 2MG/ML-1ML VIAL IV ONE (05:30)
[2020-12-01] MEDS ORDERED: IPRATROPIUM BROM 0.5 MG/2.5ML INH SOL NEB ONE (05:30)
[2020-12-01 05:50] LABS: Basophils # (auto) 0.2 10 ^3/uL (0-0.2); Basophils % (auto) 1.2 % (0.0-2.0); Eosinophils # (auto) 0.6 10 ^3/uL (0-0.8); Eosinophils % (auto) 4.2 % (0.0-7.0); Hematocrit 47.4 % (41.0-53.0); Hemoglobin 16.1 g/dL (13.5-17.5); Lymphocytes # (auto) 3.4 10 ^3/uL (0.4-5.4); Lymphocytes % (auto) 22.4 % (10.0-50.0); Mean Corpuscular Hemoglobin 30.7 pg (28.0-32.0); Mean Corpuscular Volume 90.1 fL (80.0-100.0); Monocytes # (auto) 1.5 10 ^3/uL (0-1.3); Monocytes % (auto) 9.9 % (0.0-12.0); Neutrophils # (auto) 9.5 10 ^3/uL (1.6-8.6); Neutrophils % (auto) 62.3 % (37.0-80.0); Nucleated Red Blood Cells % 0.1 %; Red Blood Cells 5.26 10^6/uL (4.5-5.90); Red Cell Distribution Width 15.9 % (11.8-14.3); White Blood Cell 15.2 10^3/uL (4.4-10.8)
[2020-12-01] MEDS ORDERED: FUROSEMIDE 40 MG/4 ML VIAL IV ONE (06:00)
[2020-12-01 06:05] LABS: INR 1.25 (0.9-1.15)
[2020-12-01 06:12] LABS: Lactic Acid w/Reflex 7.8 mmol/L (0.4-2.0)
[2020-12-01 06:13] LABS: Albumin 3.8 g/dL (3.4-5.0); BUN/Creatinine Ratio 13.4; Calcium 8.7 mg/dL (8.5-10.1); Magnesium 2.4 mg/dL (1.6-2.6); Potassium 3.4 mmol/L (3.5-5.1)
[2020-12-01 06:19] LABS: Total Protein 8.6 g/dL (6.4-8.2)
[2020-12-01] MEDS ORDERED: PIPERACILLIN-TAZOB 3.375GM 100 ML IV ONE (06:45)
[2020-12-01] MEDS ORDERED: VANCOMYCIN PER PHARMACY 0 MG IV SCH (07:15)
[2020-12-01] MEDS ORDERED: ACETAMINOPHEN 325 MG TAB PO PRN (07:15)
[2020-12-01] MEDS ORDERED: DEXTROSE (50%) 50ML SYRG IV PRN (07:15)
[2020-12-01] MEDS ORDERED: NITROGLYCERIN 0.4 MG SL TAB SL PRN (07:15)
[2020-12-01 07:20] LABS: Urine Bacteria FEW /hpf (None Seen); Urine Blood TRACE /uL (Negative); Urine Specific Gravity 1.007 (1.001-1.035); Urine WBC <1 /hpf (0 - 3)
[2020-12-01] MEDS ORDERED: VANCOMYCIN 1GM/250ML 250 ML IV ONE (08:00)
[2020-12-01] MEDS ORDERED: IOHEXOL 350 MG/ML 100ML IJ ONE (08:57)
[2020-12-01] MEDS: VANCOMYCIN 1GM/250ML 250 ML IV SCH (09:17)
[2020-12-01] MEDS: POTASSIUM EFFERVESENT TAB 25 MEQ GT ONE ×2 (10:00→10:33)
[2020-12-01] MEDS ORDERED: CLOPIDOGREL BISULFATE 75 MG TAB PO SCH (10:00)
[2020-12-01] MEDS ORDERED: ASPirin 81 mg TAB PO SCH (10:00)
[2020-12-01] MEDS ORDERED: ENOXAPARIN SOD 40 MG/0.4 ML SYRINGE SC SCH (10:00)
[2020-12-01] MEDS: AMIODARONE HCL 200 MG TAB PO SCH ×2 (10:31→22:37)
[2020-12-01] MEDS: RANOLAZINE ER 500 MG TAB PO SCH ×2 (10:31→22:38)
[2020-12-01] MEDS: amLODIPine BESYLATE 5 MG TAB PO SCH (10:31)
[2020-12-01] MEDS: FAMOTIDINE 20 MG TAB PO SCH ×2 (10:32→22:38)
[2020-12-01] MEDS: METOPROLOL SUCCINATE XL 50 MG TAB PO SCH (10:33)
[2020-12-01] MEDS ORDERED: POTASSIUM CHLORIDE 40 MEQ, LIDOCAINE 1% (LOCAL ANESTH.) 4 ML in SODIUM CHL 0.9% 250 ML IV ONE (10:45)
[2020-12-01] MEDS: ALBUTEROL SULF 2.5 MG/0.5ML(0.5%) NEB SOLN NEB SCH ×2 (11:56→18:28)
[2020-12-01] MEDS: IPRATROPIUM BROM 0.5 MG/2.5ML INH SOL NEB SCH ×2 (11:57→18:28)
[2020-12-01] MEDS: ACCU-CHEK COMFORT CURVE STRIP VI SCH ×2 (12:07→18:07)
[2020-12-01] MEDS: InsuLIN REG 1unit/0.01ml Soln (100units/ml) SC SCH ×2 (12:08→18:17)
[2020-12-01] MEDS: ONDANSETRON HCL 4 MG/2 ML VIAL IV PRN ×2 (12:14→16:51)
[2020-12-01] MEDS: MORPHINE SULFATE INJECTION 2 MG/ML SYRG IV PRN ×2 (12:15→16:52)
[2020-12-01] MEDS: PIPERACILLIN-TAZOB 3.375GM 100 ML IV SCH ×2 (13:09→19:18)
[2020-12-01] MEDS: HYDROcodone-ACET 5/325MG TAB PO PRN ×2 (16:15→22:36)
[2020-12-01] MEDS: FUROSEMIDE 20 MG/2 ML VIAL IV SCH (18:07)
[2020-12-01] MEDS: ATORVASTATIN 20 MG TAB PO SCH (22:37)
[2020-12-01] MEDS: ENOXAPARIN SOD 80 MG/0.8ML SYRINGE SC SCH (22:38)
[2020-12-02] VITALS (24 sets, daily range): BP systolic 105–134; BP diastolic 56–75
[2020-12-02] MEDS: InsuLIN REG 1unit/0.01ml Soln (100units/ml) SC SCH ×4 (00:11→18:00)
[2020-12-02] MEDS: IPRATROPIUM BROM 0.5 MG/2.5ML INH SOL NEB SCH ×4 (00:24→17:53)
[2020-12-02] MEDS: ALBUTEROL SULF 2.5 MG/0.5ML(0.5%) NEB SOLN NEB SCH ×4 (00:24→17:53)
[2020-12-02] MEDS: PIPERACILLIN-TAZOB 3.375GM 100 ML IV SCH ×4 (01:11→18:34)
[2020-12-02 05:06] LABS: Basophils # (auto) 0.1 10 ^3/uL (0-0.2); Basophils % (auto) 0.5 % (0.0-2.0); Eosinophils # (auto) 0.1 10 ^3/uL (0-0.8); Eosinophils % (auto) 0.5 % (0.0-7.0); Hematocrit 39.9 % (41.0-53.0); Hemoglobin 13.7 g/dL (13.5-17.5); Lymphocytes % (auto) 7.8 % (10.0-50.0); Mean Corpuscular Hemoglobin 30.2 pg (28.0-32.0); Mean Corpuscular Hgb Conc. 34.4 g/dL (32.0-36.0); Mean Corpuscular Volume 87.8 fL (80.0-100.0); Monocytes % (auto) 7.8 % (0.0-12.0); Neutrophils # (auto) 11.2 10 ^3/uL (1.6-8.6); Neutrophils % (auto) 83.4 % (37.0-80.0); Red Blood Cells 4.54 10^6/uL (4.5-5.90); Red Cell Distribution Width 15.5 % (11.8-14.3); White Blood Cell 13.4 10^3/uL (4.4-10.8)
[2020-12-02 05:21] LABS: INR 1.42 (0.9-1.15)
[2020-12-02 05:25] LABS: Albumin 3.2 g/dL (3.4-5.0); Calcium 8.7 mg/dL (8.5-10.1); Potassium 3.8 mmol/L (3.5-5.1)
[2020-12-02 05:31] LABS: BUN/Creatinine Ratio 23.5; Bilirubin, Total 2.2 mg/dL (0.2-1.0); Total Protein 7.1 g/dL (6.4-8.2)
[2020-12-02] MEDS: ACCU-CHEK COMFORT CURVE STRIP VI SCH ×4 (06:00→18:06)
[2020-12-02] MEDS: FUROSEMIDE 20 MG/2 ML VIAL IV SCH ×2 (06:34→18:06)
[2020-12-02] MEDS: HYDROcodone-ACET 5/325MG TAB PO PRN ×3 (08:30→20:02)
[2020-12-02] MEDS: ENOXAPARIN SOD 80 MG/0.8ML SYRINGE SC SCH ×2 (10:00→21:40)
[2020-12-02] MEDS ORDERED: CLOPIDOGREL BISULFATE 75 MG TAB PO SCH (10:00)
[2020-12-02] MEDS ORDERED: ASPirin 81 mg TAB PO SCH (10:00)
[2020-12-02] MEDS: AMIODARONE HCL 200 MG TAB PO SCH ×2 (10:06→21:39)
[2020-12-02] MEDS: METOPROLOL SUCCINATE XL 50 MG TAB PO SCH (10:07)
[2020-12-02] MEDS: RANOLAZINE ER 500 MG TAB PO SCH ×2 (10:07→21:39)
[2020-12-02] MEDS: amLODIPine BESYLATE 5 MG TAB PO SCH (10:07)
[2020-12-02] MEDS: FAMOTIDINE 20 MG TAB PO SCH ×2 (10:07→21:39)
[2020-12-02] MEDS: VANCOMYCIN 1GM/250ML 250 ML IV SCH (11:11)
[2020-12-02] MEDS: MORPHINE SULFATE INJECTION 2 MG/ML SYRG IV PRN (16:43)
[2020-12-02] MEDS: ATORVASTATIN 20 MG TAB PO SCH (21:39)
[2020-12-03] VITALS (10 sets, daily range): BP systolic 107–142; BP diastolic 49–78
[2020-12-03] MEDS: HYDROcodone-ACET 5/325MG TAB PO PRN ×5 (00:05→20:40)
[2020-12-03] MEDS: IPRATROPIUM BROM 0.5 MG/2.5ML INH SOL NEB SCH ×5 (00:27→23:52)
[2020-12-03] MEDS: ALBUTEROL SULF 2.5 MG/0.5ML(0.5%) NEB SOLN NEB SCH ×5 (00:27→23:52)
[2020-12-03] MEDS: PIPERACILLIN-TAZOB 3.375GM 100 ML IV SCH ×4 (01:00→17:50)
[2020-12-03 05:37] LABS: Basophils # (auto) 0.1 10 ^3/uL (0-0.2); Basophils % (auto) 0.6 % (0.0-2.0); Eosinophils # (auto) 0.3 10 ^3/uL (0-0.8); Eosinophils % (auto) 1.9 % (0.0-7.0); Hematocrit 38.2 % (41.0-53.0); Hemoglobin 13.5 g/dL (13.5-17.5); Lymphocytes # (auto) 0.8 10 ^3/uL (0.4-5.4); Lymphocytes % (auto) 5.9 % (10.0-50.0); Mean Corpuscular Hemoglobin 30.7 pg (28.0-32.0); Mean Corpuscular Hgb Conc. 35.4 g/dL (32.0-36.0); Mean Corpuscular Volume 86.8 fL (80.0-100.0); Monocytes # (auto) 1.2 10 ^3/uL (0-1.3); Neutrophils # (auto) 11.2 10 ^3/uL (1.6-8.6); Neutrophils % (auto) 82.6 % (37.0-80.0); Nucleated Red Blood Cells % 0.1 %; Red Cell Distribution Width 15.4 % (11.8-14.3); White Blood Cell 13.6 10^3/uL (4.4-10.8)
[2020-12-03] MEDS: FUROSEMIDE 20 MG/2 ML VIAL IV SCH ×2 (05:39→16:47)
[2020-12-03] MEDS: ACCU-CHEK COMFORT CURVE STRIP VI SCH ×4 (05:46→16:45)
[2020-12-03 05:59] LABS: Potassium 3.5 mmol/L (3.5-5.1)
[2020-12-03] MEDS: InsuLIN REG 1unit/0.01ml Soln (100units/ml) SC SCH ×4 (06:00→18:10)
[2020-12-03 06:13] LABS: BUN/Creatinine Ratio 24.8; Calcium 8.7 mg/dL (8.5-10.1)
[2020-12-03] MEDS ORDERED: fentaNYL CITRATE 100 MCG/2 ML VL ONE (08:52)
[2020-12-03] MEDS ORDERED: VANCOMYCIN HCL 1000 MG VL ONE (08:52)
[2020-12-03] MEDS ORDERED: MIDAZOLAM HCL 2MG/2ML 2ml VIAL (1mg/ml) ONE (08:53)
[2020-12-03] MEDS ORDERED: LIDOCAINE 2%HCL (LOCAL ANESTH.) INJ 20ML MDV ONE (08:53)
[2020-12-03] MEDS ORDERED: POTASSIUM CHL 20 Meq TABLET PO ONE (11:45)
[2020-12-03] MEDS: AMIODARONE HCL 200 MG TAB PO SCH ×2 (12:39→21:32)
[2020-12-03] MEDS: VANCOMYCIN 1GM/250ML 250 ML IV SCH (12:39)
[2020-12-03] MEDS: FAMOTIDINE 20 MG TAB PO SCH ×2 (12:40→21:33)
[2020-12-03] MEDS: RANOLAZINE ER 500 MG TAB PO SCH ×2 (12:40→21:33)
[2020-12-03] MEDS: SACUBITRIL-VALSARTAN 24mg/26mg TAB PO SCH (21:32)
[2020-12-03] MEDS: METOPROLOL TARTRATE 25 MG TAB PO SCH (21:32)
[2020-12-03] MEDS: ATORVASTATIN 20 MG TAB PO SCH (21:32)
[2020-12-04] VITALS (25 sets, daily range): BP systolic 96–128; BP diastolic 51–65
[2020-12-04] MEDS: PIPERACILLIN-TAZOB 3.375GM 100 ML IV SCH ×4 (00:21→18:31)
[2020-12-04] MEDS: ACCU-CHEK COMFORT CURVE STRIP VI SCH ×4 (00:21→17:47)
[2020-12-04] MEDS: TEMAZEPAM 15 MG CAP PO PRN ×2 (00:21→21:39)
[2020-12-04 05:34] LABS: Basophils # (auto) 0.1 10 ^3/uL (0-0.2); Eosinophils # (auto) 0.3 10 ^3/uL (0-0.8); Eosinophils % (auto) 3.3 % (0.0-7.0); Hematocrit 36.2 % (41.0-53.0); Hemoglobin 12.9 g/dL (13.5-17.5); Lymphocytes # (auto) 0.8 10 ^3/uL (0.4-5.4); Lymphocytes % (auto) 8.2 % (10.0-50.0); Mean Corpuscular Hemoglobin 30.8 pg (28.0-32.0); Mean Corpuscular Hgb Conc. 35.6 g/dL (32.0-36.0); Mean Corpuscular Volume 86.3 fL (80.0-100.0); Monocytes # (auto) 0.9 10 ^3/uL (0-1.3); Monocytes % (auto) 9.6 % (0.0-12.0); Neutrophils # (auto) 7.2 10 ^3/uL (1.6-8.6); Neutrophils % (auto) 77.9 % (37.0-80.0); Red Cell Distribution Width 15.4 % (11.8-14.3); White Blood Cell 9.3 10^3/uL (4.4-10.8)
[2020-12-04] MEDS: InsuLIN REG 1unit/0.01ml Soln (100units/ml) SC SCH ×5 (05:41→23:55)
[2020-12-04] MEDS: FUROSEMIDE 20 MG/2 ML VIAL IV SCH ×2 (05:41→17:47)
[2020-12-04 05:53] LABS: Calcium 8.6 mg/dL (8.5-10.1); Potassium 3.6 mmol/L (3.5-5.1)
[2020-12-04 05:57] LABS: BUN/Creatinine Ratio 26.5
[2020-12-04] MEDS: ALBUTEROL SULF 2.5 MG/0.5ML(0.5%) NEB SOLN NEB SCH ×4 (06:05→18:16)
[2020-12-04] MEDS: IPRATROPIUM BROM 0.5 MG/2.5ML INH SOL NEB SCH ×4 (06:06→18:16)
[2020-12-04] MEDS: HYDROcodone-ACET 5/325MG TAB PO PRN ×4 (06:35→20:04)
[2020-12-04] MEDS: SACUBITRIL-VALSARTAN 24mg/26mg TAB PO SCH ×2 (09:05→21:36)
[2020-12-04] MEDS: RANOLAZINE ER 500 MG TAB PO SCH ×2 (09:05→21:39)
[2020-12-04] MEDS: FAMOTIDINE 20 MG TAB PO SCH ×2 (09:05→21:38)
[2020-12-04] MEDS: POTASSIUM CHL 20 Meq TABLET PO SCH (09:06)
[2020-12-04] MEDS: VANCOMYCIN 1GM/250ML 250 ML IV SCH (09:07)
[2020-12-04] MEDS: AMIODARONE HCL 200 MG TAB PO SCH ×2 (10:00→21:35)
[2020-12-04] MEDS ORDERED: ENOXAPARIN SOD 40 MG/0.4 ML SYRINGE SC SCH (10:00)
[2020-12-04] MEDS: METOPROLOL TARTRATE 25 MG TAB PO SCH ×2 (10:00→21:38)
[2020-12-04] MEDS ORDERED: MIDAZOLAM HCL 2MG/2ML 2ml VIAL (1mg/ml) ONE (13:15)
[2020-12-04] MEDS ORDERED: fentaNYL CITRATE 100 MCG/2 ML VL ONE (13:15)
[2020-12-04] MEDS ORDERED: ANGIOMAX 250 MG VIAL IV ONE (13:15)
[2020-12-04] MEDS ORDERED: SODIUM CHL 0.9% 50 ML ONE ×2 (13:15→14:16)
[2020-12-04] MEDS ORDERED: IOHEXOL 350 MG/ML 100ML IJ ONE ×2 (13:16→14:12)
[2020-12-04] MEDS ORDERED: LIDOCAINE 2%HCL (LOCAL ANESTH.) INJ 20ML MDV ONE (13:16)
[2020-12-04] MEDS ORDERED: EPTIFIBATIDE INJ (2MG/ML) 10ML VIAL IV ONE (14:14)
[2020-12-04] MEDS ORDERED: ADENOSINE 90 MG/30 ML INJ IV ONE (14:16)
[2020-12-04] MEDS ORDERED: TICAGRELOR 90 MG TAB ONE (14:34)
[2020-12-04] MEDS: MORPHINE SULFATE INJECTION 2 MG/ML SYRG IV PRN (16:40)
[2020-12-04] MEDS: TICAGRELOR 90 MG TAB PO SCH (21:34)
[2020-12-04] MEDS: ATORVASTATIN 20 MG TAB PO SCH (21:37)
[2020-12-05] VITALS (10 sets, daily range): BP systolic 103–125; BP diastolic 46–65
[2020-12-05] MEDS: ACCU-CHEK COMFORT CURVE STRIP VI SCH ×3 (00:23→12:00)
[2020-12-05] MEDS: PIPERACILLIN-TAZOB 3.375GM 100 ML IV SCH ×4 (00:23→16:55)
[2020-12-05] MEDS: HYDROcodone-ACET 5/325MG TAB PO PRN ×3 (03:16→23:06)
[2020-12-05] MEDS: FUROSEMIDE 20 MG/2 ML VIAL IV SCH ×2 (05:04→18:00)
[2020-12-05] MEDS: InsuLIN REG 1unit/0.01ml Soln (100units/ml) SC SCH ×2 (05:14→12:00)
[2020-12-05 05:53] LABS: Basophils # (auto) 0 10 ^3/uL (0-0.2); Basophils % (auto) 0.5 % (0.0-2.0); Eosinophils # (auto) 0.4 10 ^3/uL (0-0.8); Eosinophils % (auto) 3.8 % (0.0-7.0); Hematocrit 38.6 % (41.0-53.0); Hemoglobin 13.7 g/dL (13.5-17.5); Lymphocytes # (auto) 0.5 10 ^3/uL (0.4-5.4); Lymphocytes % (auto) 5.2 % (10.0-50.0); Mean Corpuscular Hemoglobin 30.4 pg (28.0-32.0); Mean Corpuscular Hgb Conc. 35.6 g/dL (32.0-36.0); Mean Corpuscular Volume 85.4 fL (80.0-100.0); Monocytes % (auto) 9.7 % (0.0-12.0); Neutrophils # (auto) 8.5 10 ^3/uL (1.6-8.6); Neutrophils % (auto) 80.8 % (37.0-80.0); Red Blood Cells 4.52 10^6/uL (4.5-5.90); Red Cell Distribution Width 15.1 % (11.8-14.3); White Blood Cell 10.5 10^3/uL (4.4-10.8)
[2020-12-05 06:06] LABS: Calcium 8.3 mg/dL (8.5-10.1); Potassium 3.4 mmol/L (3.5-5.1)
[2020-12-05 06:12] LABS: BUN/Creatinine Ratio 22.7
[2020-12-05] MEDS: IPRATROPIUM BROM 0.5 MG/2.5ML INH SOL NEB SCH ×5 (06:41→19:36)
[2020-12-05] MEDS: ALBUTEROL SULF 2.5 MG/0.5ML(0.5%) NEB SOLN NEB SCH ×5 (06:41→19:37)
[2020-12-05] MEDS: TICAGRELOR 90 MG TAB PO SCH ×2 (09:36→23:12)
[2020-12-05] MEDS: METOPROLOL TARTRATE 25 MG TAB PO SCH ×2 (09:37→22:35)
[2020-12-05] MEDS: SACUBITRIL-VALSARTAN 24mg/26mg TAB PO SCH ×2 (09:37→22:36)
[2020-12-05] MEDS: FAMOTIDINE 20 MG TAB PO SCH ×2 (09:37→22:35)
[2020-12-05] MEDS: RANOLAZINE ER 500 MG TAB PO SCH ×2 (09:37→22:35)
[2020-12-05] MEDS: AMIODARONE HCL 200 MG TAB PO SCH ×2 (09:37→22:36)
[2020-12-05] MEDS: POTASSIUM CHL 20 Meq TABLET PO SCH (09:37)
[2020-12-05] MEDS ORDERED: POTASSIUM CHL 20 Meq TABLET PO ONE ×2 (12:45→20:00)
[2020-12-05] MEDS: ATORVASTATIN 20 MG TAB PO SCH (22:36)
[2020-12-06] MEDS: PIPERACILLIN-TAZOB 3.375GM 100 ML IV SCH ×4 (01:06→19:34)
[2020-12-06 05:00] VITALS: BP 101/56
[2020-12-06] MEDS: FUROSEMIDE 20 MG/2 ML VIAL IV SCH ×2 (05:59→19:34)
[2020-12-06] MEDS: IPRATROPIUM BROM 0.5 MG/2.5ML INH SOL NEB SCH ×4 (06:00→21:42)
[2020-12-06] MEDS: ALBUTEROL SULF 2.5 MG/0.5ML(0.5%) NEB SOLN NEB SCH ×4 (06:00→21:42)
[2020-12-06] MEDS: AMIODARONE HCL 200 MG TAB PO SCH ×2 (08:56→21:36)
[2020-12-06] MEDS: SACUBITRIL-VALSARTAN 24mg/26mg TAB PO SCH ×2 (08:56→21:34)
[2020-12-06] MEDS: METOPROLOL TARTRATE 25 MG TAB PO SCH ×2 (08:57→21:36)
[2020-12-06] MEDS: RANOLAZINE ER 500 MG TAB PO SCH ×2 (08:57→21:34)
[2020-12-06] MEDS: POTASSIUM CHL 20 Meq TABLET PO SCH (08:57)
[2020-12-06] MEDS: FAMOTIDINE 20 MG TAB PO SCH ×2 (08:57→21:34)
[2020-12-06] MEDS: TICAGRELOR 90 MG TAB PO SCH ×2 (10:26→21:37)
[2020-12-06 13:42] LABS: Basophils # (auto) 0.1 10 ^3/uL (0-0.2); Eosinophils # (auto) 0.4 10 ^3/uL (0-0.8); Eosinophils % (auto) 4.5 % (0.0-7.0); Hematocrit 43.4 % (41.0-53.0); Hemoglobin 14.6 g/dL (13.5-17.5); Lymphocytes # (auto) 0.7 10 ^3/uL (0.4-5.4); Lymphocytes % (auto) 7.3 % (10.0-50.0); Mean Corpuscular Hemoglobin 29.2 pg (28.0-32.0); Mean Corpuscular Hgb Conc. 33.7 g/dL (32.0-36.0); Mean Corpuscular Volume 86.6 fL (80.0-100.0); Monocytes # (auto) 0.8 10 ^3/uL (0-1.3); Monocytes % (auto) 8.9 % (0.0-12.0); Neutrophils # (auto) 7.3 10 ^3/uL (1.6-8.6); Neutrophils % (auto) 78.3 % (37.0-80.0); Nucleated Red Blood Cells % 0.1 %; Red Blood Cells 5.01 10^6/uL (4.5-5.90); Red Cell Distribution Width 15.3 % (11.8-14.3); White Blood Cell 9.3 10^3/uL (4.4-10.8)
[2020-12-06 13:51] LABS: Albumin 2.8 g/dL (3.4-5.0); Calcium 8.9 mg/dL (8.5-10.1); Magnesium 2.4 mg/dL (1.6-2.6); Potassium 4.4 mmol/L (3.5-5.1); Uric Acid 2.8 mg/dL (3.5-7.2)
[2020-12-06 13:57] LABS: BUN/Creatinine Ratio 19.6; Bilirubin, Total 0.9 mg/dL (0.2-1.0); Phosphorus 3.1 mg/dL (2.5-4.90); Total Protein 7.1 g/dL (6.4-8.2)
[2020-12-06 13:59] LABS: INR 1.32 (0.9-1.15); Partial Thromboplastin Time 30.6 sec (23.0-31.2)
[2020-12-06 14:49] LABS: Thyroid Stimulating Hormone 2.43 uIU/mL (0.358-3.74)
[2020-12-06 17:04] VITALS: BP 112/71
[2020-12-06] MEDS: ATORVASTATIN 20 MG TAB PO SCH (21:33)
[2020-12-06] MEDS: TEMAZEPAM 15 MG CAP PO PRN (21:34)
[2020-12-06 22:00] VITALS: BP 121/63
[2020-12-07] MEDS: PIPERACILLIN-TAZOB 3.375GM 100 ML IV SCH ×3 (00:48→14:17)
[2020-12-07 05:00] VITALS: BP 93/52
[2020-12-07] MEDS: FUROSEMIDE 20 MG/2 ML VIAL IV SCH (06:00)
[2020-12-07 06:28] LABS: Basophils # (auto) 0.1 10 ^3/uL (0-0.2); Eosinophils # (auto) 0.5 10 ^3/uL (0-0.8); Eosinophils % (auto) 5.5 % (0.0-7.0); Hematocrit 43.5 % (41.0-53.0); Hemoglobin 14.8 g/dL (13.5-17.5); Lymphocytes # (auto) 1.1 10 ^3/uL (0.4-5.4); Lymphocytes % (auto) 12.3 % (10.0-50.0); Mean Corpuscular Hemoglobin 29.5 pg (28.0-32.0); Mean Corpuscular Hgb Conc. 33.9 g/dL (32.0-36.0); Monocytes % (auto) 10.4 % (0.0-12.0); Neutrophils # (auto) 6.5 10 ^3/uL (1.6-8.6); Neutrophils % (auto) 70.8 % (37.0-80.0); Red Blood Cells 5.01 10^6/uL (4.5-5.90); Red Cell Distribution Width 15.5 % (11.8-14.3); White Blood Cell 9.2 10^3/uL (4.4-10.8)
[2020-12-07 06:30] LABS: Potassium 3.9 mmol/L (3.5-5.1)
[2020-12-07 06:37] LABS: BUN/Creatinine Ratio 20.2; Calcium 8.8 mg/dL (8.5-10.1); Magnesium 2.3 mg/dL (1.6-2.6); Phosphorus 3.6 mg/dL (2.5-4.90); Total Protein 7.3 g/dL (6.4-8.2)
[2020-12-07 06:43] LABS: INR 1.3 (0.9-1.15)
[2020-12-07 08:37] VITALS: BP 109/63
[2020-12-07] MEDS: SACUBITRIL-VALSARTAN 24mg/26mg TAB PO SCH (09:10)
[2020-12-07] MEDS: TICAGRELOR 90 MG TAB PO SCH (09:10)
[2020-12-07] MEDS: AMIODARONE HCL 200 MG TAB PO SCH (09:10)
[2020-12-07] MEDS: RANOLAZINE ER 500 MG TAB PO SCH (09:11)
[2020-12-07] MEDS: FAMOTIDINE 20 MG TAB PO SCH (09:11)
[2020-12-07] MEDS: POTASSIUM CHL 20 Meq TABLET PO SCH (09:11)
[2020-12-07] MEDS: METOPROLOL TARTRATE 25 MG TAB PO SCH (09:12)
[2020-12-07] MEDS: ALBUTEROL SULF 2.5 MG/0.5ML(0.5%) NEB SOLN NEB SCH ×2 (09:19→13:49)
[2020-12-07] MEDS: IPRATROPIUM BROM 0.5 MG/2.5ML INH SOL NEB SCH ×2 (09:19→13:49)
[2020-12-07 11:10] VITALS: BP 109/61
[2020-12-07] MEDS ORDERED: TICA90TA PO (11:46)
[2020-12-07] MEDS ORDERED: RANO500T PO (11:47)
[2020-12-07] MEDS ORDERED: SACU1TAB PO (11:47)
[2020-12-07] MEDS ORDERED: AMOX500T86 PO (11:47)
[2020-12-07 12:41] VITALS: BP 92/50
[2020-12-07 14:08] VITALS: BP 109/63
== END 2020-12-07 16:55 | disposition home or self-care (01) | DRG 853 ==
LOC: EDBD 05:08 → ER 05:08 → TELE 07:11 → DOU IN ICU 23:44 → TELE-WESTW 12-05 14:20
PROVIDERS: ADMIT Nurse Practitioner; ATTEND Internal Medicine Pulmonary Disease
PROC: 0JH608Z Insertion of Defibrillator Generator into Chest Subcutaneous Tissue and Fascia, Open Approach (ICD-10-PCS; principal; 2020-12-03)
PROC: 02H63KZ Insertion of Defibrillator Lead into Right Atrium, Percutaneous Approach (ICD-10-PCS; 2020-12-03)
PROC: 02HK3KZ Insertion of Defibrillator Lead into Right Ventricle, Percutaneous Approach (ICD-10-PCS; 2020-12-03)
PROC: 027034Z Dilation of Coronary Artery, One Artery with Drug-eluting Intraluminal Device, Percutaneous Approach (ICD-10-PCS; 2020-12-04)
PROC: B2111ZZ Fluoroscopy of Multiple Coronary Arteries using Low Osmolar Contrast (ICD-10-PCS; 2020-12-04)
PROC: B2121ZZ Fluoroscopy of Single Coronary Artery Bypass Graft using Low Osmolar Contrast (ICD-10-PCS; 2020-12-04)
PROC: 3E0 Administration, Physiological Systems and Anatomical Regions, Introduction (ICD-10-PCS; 2020-12-04)
DX: A41.9 Sepsis, unspecified organism (principal); J18.9 Pneumonia, unspecified organism; I50.23 Acute on chronic systolic (congestive) heart failure; J96.21 Acute and chronic respiratory failure with hypoxia; I21.4 Non-ST elevation (NSTEMI) myocardial infarction; I47.2 Ventricular tachycardia; J44.0 Chronic obstructive pulmonary disease with (acute) lower respiratory infection; Z20.822 Contact with and (suspected) exposure to COVID-19; I25.10 Atherosclerotic heart disease of native coronary artery without angina pectoris; E66.9 Obesity, unspecified; E78.5 Hyperlipidemia, unspecified; E87.6 Hypokalemia; I25.5 Ischemic cardiomyopathy; E11.42 Type 2 diabetes mellitus with diabetic polyneuropathy; K21.9 Gastro-esophageal reflux disease without esophagitis; Z83.3 Family history of diabetes mellitus; Z68.31 Body mass index [BMI] 31.0-31.9, adult; Z79.899 Other long term (current) drug therapy
CPT/HCPCS: 33249; 36415; 36600; 71045; 71275; 80048; 80053; 80202; 81001; 82306; 82728; 82805; 82962; 83036; 83605; 83615; 83690; 83735; 83880; 84100; 84443; 84484; 84550; 85025; 85379; 85610; 85730; 86850; 86900; 86901; 87040; 87081; 87426; 92928; 93005; 93306; 93454; 93970; 94640; 94660; 99152; 99153; 99291; C1874; G0378; J0153; J1815; J2001; J2250; J2405; J2543

== ENCOUNTER → 2020-12-16 | Outpatient (CLI) | payer MEDICARE, OTHER ==
[~2020-12-16] MED LIST changes: +AMOX500T86 PO; -ATOR80TA PO; -CLOP75TA28 PO; +RANO500T PO; +SACU1TAB PO; +TICA90TA PO
[2020-12-16 10:50] VITALS: BP 155/67
[2020-12-16 11:18] VITALS: BP 142/61
== END | disposition home or self-care (01) ==
LOC: CHF HDHVI 11:12
PROVIDERS: ATTEND Internal Medicine Cardiovascular Disease
DX: T14.8XXA Other injury of unspecified body region, initial encounter (principal); X58.XXXA Exposure to other specified factors, initial encounter; Y93.89 Activity, other specified; Y92.89 Other specified places as the place of occurrence of the external cause; Y99.8 Other external cause status; Z95.0 Presence of cardiac pacemaker
CPT/HCPCS: G0463

== ENCOUNTER 2022-11-19 20:29 | Emergency (ER) | payer MEDICARE, OTHER ==
[~2022-11-19] VITALS: Ht 157.5 cm; Wt 81.0 kg
[~2022-11-19 20:29] MED LIST changes: -AMLO-489 PO; +AMLO1TAB22 PO
[2022-11-19 21:05] VITALS: BP 159/67
[2022-11-19 21:17] LABS: Albumin 4.3 g/dL (3.4-5.0); Calcium 9.6 mg/dL (8.5-10.1); Magnesium 2.7 mg/dL (1.6-2.6); Potassium 4.4 mmol/L (3.5-5.1)
[2022-11-19 21:22] LABS: BUN/Creatinine Ratio 15.9 (10.0-20.0); Bilirubin, Total 1.2 mg/dL (0.2-1.0); Total Protein 8.2 g/dL (6.4-8.2)
[2022-11-19 21:31] LABS: Basophils # (auto) 0.1 10 ^3/uL (0-0.2); Basophils % (auto) 0.6 % (0.0-2.0); Eosinophils # (auto) 0.2 10 ^3/uL (0-0.8); Eosinophils % (auto) 1.7 % (0.0-7.0); Hematocrit 46.7 % (41.0-53.0); Hemoglobin 15.9 g/dL (13.5-17.5); Lymphocytes # (auto) 1.2 10 ^3/uL (0.4-5.4); Lymphocytes % (auto) 13.2 % (10.0-50.0); Mean Corpuscular Hgb Conc. 34.1 g/dL (32.0-36.0); Monocytes # (auto) 0.8 10 ^3/uL (0-1.3); Monocytes % (auto) 8.1 % (0.0-12.0); Neutrophils # (auto) 7.1 10 ^3/uL (1.6-8.6); Neutrophils % (auto) 76.4 % (37.0-80.0); Nucleated Red Blood Cells % 0.1 %; Red Blood Cells 5.31 10^6/uL (4.5-5.90); Red Cell Distribution Width 15.3 % (11.8-14.3); White Blood Cell 9.3 10^3/uL (4.4-10.8)
== END 2022-11-19 22:42 | disposition left against medical advice (07) ==
LOC: ER 20:29
DX: R07.89 Other chest pain (principal); R06.02 Shortness of breath; Z53.21 Procedure and treatment not carried out due to patient leaving prior to being seen by health care provider
CPT/HCPCS: 36415; 80053; 83735; 83880; 84484; 85025; 93005

== ENCOUNTER 2023-09-14 18:07 | Inpatient (IN) | payer MEDICARE, OTHER ==
[~2023-09-14] VITALS: Ht 157.5 cm; Wt 68.0 kg
[2023-09-14 18:10] VITALS: PULSE 114; RESP 39; O2SAT 100
[2023-09-14] MEDS: FUROSEMIDE 40 MG/4 ML VIAL IV ONE ×2 (18:10→20:11)
[2023-09-14] MEDS: methylPREDNISolone SOD SUCC 125 MG/2 ML VL IV ONE (18:10)
[2023-09-14] MEDS: ALBUTEROL SULF 2.5 MG/0.5ML(0.5%) NEB SOLN NEB ONE (18:18)
[2023-09-14] MEDS: IPRATROPIUM BROM 0.5 MG/2.5ML INH SOL NEB ONE (18:18)
[2023-09-14 18:44] LABS: Basophils # (auto) 0.1 10 ^3/uL (0-0.2); Basophils % (auto) 0.6 % (0.0-2.0); Eosinophils # (auto) 0.1 10 ^3/uL (0-0.8); Hematocrit 47.5 % (41.0-53.0); Hemoglobin 15.2 g/dL (13.5-17.5); Lymphocytes # (auto) 1.1 10 ^3/uL (0.4-5.4); Lymphocytes % (auto) 8.7 % (10.0-50.0); Mean Corpuscular Hemoglobin 29.1 pg (28.0-32.0); Mean Corpuscular Hgb Conc. 32.1 g/dL (32.0-36.0); Mean Corpuscular Volume 90.7 fL (80.0-100.0); Monocytes # (auto) 1.1 10 ^3/uL (0-1.3); Monocytes % (auto) 9.3 % (0.0-12.0); Neutrophils # (auto) 9.8 10 ^3/uL (1.6-8.6); Neutrophils % (auto) 80.4 % (37.0-80.0); Nucleated Red Blood Cells % 0.2 %; Red Blood Cells 5.23 10^6/uL (4.5-5.90); Red Cell Distribution Width 18.5 % (11.8-14.3); White Blood Cell 12.2 10^3/uL (4.4-10.8)
[2023-09-14 19:03] LABS: Alanine Aminotransferase 11 U/L (7-40); Albumin 4.5 g/dL (3.2-4.8); Alkaline Phosphatase 58 U/L (46-116); Anion Gap 15 (5-15); Aspartate Aminotransferase 26 U/L (13-40); BUN/Creatinine Ratio 14.2 (10.0-20.0); Blood Urea Nitrogen 23 mg/dL (9-23); Calcium 9.5 mg/dL (8.7-10.4); Carbon Dioxide 24 mmol/L (20-30); Chloride 98 mmol/L (98-107); Glucose 221 mg/dL (74-106); Magnesium 2.3 mg/dL (1.6-2.6); Potassium 3.2 mmol/L (3.5-5.1); Sodium 137 mmol/L (136-145); Total Protein 7.8 g/dL (5.7-8.2)
[2023-09-14 19:16] LABS: Base Excess 3.4 mmol/L (-2.0-2.0)
[2023-09-14 19:24] LABS: Lactic Acid w/Reflex 4.5 mmol/L (0.4-2.0)
[2023-09-14 19:30] VITALS: PULSE 94; RESP 94; O2SAT 92
[2023-09-14] MEDS: cefTRIAXone 1GM/50ML D5W 50 ML IV ONE (20:12)
[2023-09-14] MEDS: NITROGLYCERIN 0.4 MG SL TAB SL ONE (20:37)
[2023-09-14 20:58] VITALS: BP 114/67; PULSE 118; O2SAT 97
[2023-09-14] MEDS: LORazepam 2MG/ML-1ML VIAL IV ONE (21:05)
[2023-09-14] MEDS ORDERED: hydrALAZINE HCL 20 MG/ML VL IV PRN (21:15)
[2023-09-14] MEDS ORDERED: IPRATROPIUM BROM 0.5 MG/2.5ML INH SOL NEB PRN (21:15)
[2023-09-14] MEDS ORDERED: DEXTROSE (50%) 50ML SYRG IV PRN (21:15)
[2023-09-14] MEDS ORDERED: ALBUTEROL SULF 2.5 MG/0.5ML(0.5%) NEB SOLN NEB PRN (21:15)
[2023-09-14] MEDS ORDERED: ACETAMINOPHEN 325 MG TAB PO PRN (21:15)
[2023-09-14] MEDS ORDERED: HYDROcodone-ACET 5/325MG TAB PO PRN (21:15)
[2023-09-14] MEDS: LORazepam 2MG/ML-1ML VIAL ONE (21:17)
[2023-09-14 21:24] LABS: Rapid Influenza A Negative (Negative); Rapid Influenza B Negative (Negative)
[2023-09-14 21:25] LABS: COVID19 ANTIGEN SOFIA FIA NEGATIVE (NEGATIVE)
[2023-09-14] MEDS: HYDROcodone-ACET 5/325MG TAB PO ONE (21:36)
[2023-09-14] MEDS: POTASSIUM CHL 20MEQ/100ML 100 ML IV SCH (21:36)
[2023-09-14 21:49] VITALS: BP 126/69; PULSE 97; O2SAT 96
[2023-09-14] MEDS: SODIUM CHLOR 0.9% PF (SALINE LOCK) 10ML VIAL/SYR IV SCH (21:52)
[2023-09-14] MEDS ORDERED: MORPHINE SULFATE INJ 2 MG/ml SYRG IV PRN (22:00)
[2023-09-14] MEDS ORDERED: NITROGLYCERIN 0.4 MG SL TAB SL PRN (22:00)
[2023-09-14] MEDS: ACCU-CHEK COMFORT CURVE STRIP VI SCH (22:46)
[2023-09-14] MEDS: InsuLIN REG 1unit/0.01ml Soln (100units/ml) SC SCH (22:50)
[2023-09-14] MEDS: CARVEDILOL 12.5 MG TAB PO SCH (22:52)
[2023-09-14 23:07] LABS: INR 1.63 (0.9-1.15); Partial Thromboplastin Time 33.5 SEC (24.5-34.5); Prothrombin Time 16.6 sec (9.3-11.8)
[2023-09-14 23:22] LABS: Urine Bacteria FEW /hpf (None Seen); Urine Blood Negative /uL (Negative); Urine Clarity Clear (Clear); Urine Color Yellow (Yellow); Urine Protein, UAD 1+ (Negative); Urine Specific Gravity 1.011 (1.001-1.035); Urine Urobilinogen Normal (Negative); Urine WBC 1 /hpf (0 - 3)
[2023-09-15] VITALS (64 sets, daily range): BP systolic 88–116; BP diastolic 29–75; PULSE 8–97; RESP 12–41; TEMP 96.6–98.6; O2SAT 90–98
[2023-09-15] MEDS: methylPREDNISolone SOD SUCC 40 MG/ML VL IV SCH (00:06)
[2023-09-15] MEDS: LORazepam 2MG/ML-1ML VIAL IV ONE (01:33)
[2023-09-15 02:37] LABS: Base Excess 1.5 mmol/L (-2.0-2.0)
[2023-09-15] MEDS: MIDODRINE HCL 10 MG TAB PO ONE (03:00)
[2023-09-15 05:12] LABS: Basophils # (auto) 0 10 ^3/uL (0-0.2); Eosinophils # (auto) 0 10 ^3/uL (0-0.8); Eosinophils % (auto) 0.1 % (0.0-7.0); Hemoglobin 13.9 g/dL (13.5-17.5); Lymphocytes # (auto) 0.4 10 ^3/uL (0.4-5.4); Lymphocytes % (auto) 4.7 % (10.0-50.0); Mean Corpuscular Hemoglobin 29.7 pg (28.0-32.0); Mean Corpuscular Hgb Conc. 33.1 g/dL (32.0-36.0); Mean Corpuscular Volume 89.8 fL (80.0-100.0); Monocytes # (auto) 0.1 10 ^3/uL (0-1.3); Monocytes % (auto) 1.4 % (0.0-12.0); Neutrophils # (auto) 8.4 10 ^3/uL (1.6-8.6); Neutrophils % (auto) 93.8 % (37.0-80.0); Nucleated Red Blood Cells % 0.1 %; Red Blood Cells 4.67 10^6/uL (4.5-5.90); Red Cell Distribution Width 18.4 % (11.8-14.3); White Blood Cell 8.9 10^3/uL (4.4-10.8)
[2023-09-15 05:14] LABS: Albumin 3.8 g/dL (3.2-4.8); Alkaline Phosphatase 43 U/L (46-116); Anion Gap 10 (5-15); Aspartate Aminotransferase 22 U/L (13-40); BUN/Creatinine Ratio 13.8 (10.0-20.0); Blood Urea Nitrogen 19 mg/dL (9-23); Calcium 9.3 mg/dL (8.7-10.4); Carbon Dioxide 26 mmol/L (20-30); Chloride 103 mmol/L (98-107); Glucose 189 mg/dL (74-106); Potassium 3.5 mmol/L (3.5-5.1); Sodium 139 mmol/L (136-145)
[2023-09-15 05:15] LABS: Bilirubin, Total 2.7 mg/dL (0.2-1.0); Total Protein 6.8 g/dL (5.7-8.2)
[2023-09-15 05:22] LABS: Alanine Aminotransferase < 9 U/L (7-40)
[2023-09-15] MEDS: InsuLIN REG 1unit/0.01ml Soln (100units/ml) SC SCH (06:16)
[2023-09-15 07:53] LABS: Base Excess 4.1 mmol/L (-2.0-2.0)
[2023-09-15] MEDS: cefTRIAXone 1GM/50ML D5W 50 ML IV SCH (08:18)
[2023-09-15] MEDS ORDERED: ASPirin 81 mg TAB PO SCH (10:00)
[2023-09-15] MEDS: FAMOTIDINE (10MG/ML) 2ML VL IV SCH (10:31)
[2023-09-15] MEDS: FUROSEMIDE 40 MG/4 ML VIAL IV SCH ×2 (10:31→11:00)
[2023-09-15] MEDS: APIXABAN 5 MG TAB PO SCH (10:32)
[2023-09-15] MEDS: TICAGRELOR 90 MG TAB PO ONE (10:45)
[2023-09-15] MEDS: HYDROcodone-ACET 10/325MG TAB PO SCH (11:51)
[2023-09-15] MEDS: ALBUTEROL SULF 2.5 MG/0.5ML(0.5%) NEB SOLN NEB SCH (11:54)
[2023-09-15] MEDS: IPRATROPIUM BROM 0.5 MG/2.5ML INH SOL NEB SCH (11:54)
[2023-09-15] MEDS: DOCUSATE SOD 100 MG CAP PO PRN (14:29)
[2023-09-15] MEDS: MORPHINE SULFATE INJ 2 MG/ml SYRG IV PRN (15:39)
[2023-09-15] MEDS: metOLazone 5 MG TAB PO ONE (15:59)
[2023-09-15] MEDS ORDERED: FURO40TA4 PO (17:44)
[2023-09-15] MEDS ORDERED: METF-1201 PO (17:44)
[2023-09-15] MEDS ORDERED: POTA-220 PO (17:44)
[2023-09-15] MEDS ORDERED: METO25TA93 PO (17:44)
[2023-09-15] MEDS: ONDANSETRON HCL 4 MG/2 ML VIAL IV PRN (17:47)
[2023-09-15] MEDS ORDERED: LORA-622 PO (17:49)
[2023-09-15] MEDS ORDERED: ZALE10CA44 PO (17:49)
[2023-09-15] MEDS ORDERED: FENO160T PO (17:49)
[2023-09-15] MEDS ORDERED: GABA-1250 PO (17:49)
[2023-09-15] MEDS ORDERED: HYDR-4072 PO (17:49)
[2023-09-15] MEDS ORDERED: TIZA4TAB9 PO (17:49)
[2023-09-15] MEDS ORDERED: OMEP-448 PO (17:49)
[2023-09-15] MEDS: MORPHINE SULFATE INJ 2 MG/ml SYRG IV ONE (17:51)
[2023-09-15] MEDS: TICAGRELOR 90 MG TAB PO SCH (21:10)
[2023-09-15] MEDS: MELATONIN 5 MG TAB PO SCH (21:10)
[2023-09-16] VITALS (35 sets, daily range): BP systolic 92–125; BP diastolic 47–89; PULSE 79–103; RESP 14–33; TEMP 97.5–98.3; O2SAT 91–98
[2023-09-16 04:46] LABS: Basophils # (auto) 0 10 ^3/uL (0-0.2); Basophils % (auto) 0.2 % (0.0-2.0); Eosinophils # (auto) 0 10 ^3/uL (0-0.8); Hematocrit 41.4 % (41.0-53.0); Hemoglobin 13.6 g/dL (13.5-17.5); Lymphocytes # (auto) 0.2 10 ^3/uL (0.4-5.4); Lymphocytes % (auto) 1.5 % (10.0-50.0); Mean Corpuscular Hemoglobin 29.5 pg (28.0-32.0); Mean Corpuscular Hgb Conc. 32.8 g/dL (32.0-36.0); Monocytes # (auto) 0.8 10 ^3/uL (0-1.3); Monocytes % (auto) 5.4 % (0.0-12.0); Neutrophils # (auto) 13.8 10 ^3/uL (1.6-8.6); Neutrophils % (auto) 92.9 % (37.0-80.0); Nucleated Red Blood Cells % 0.1 %; Red Cell Distribution Width 18.5 % (11.8-14.3); White Blood Cell 14.9 10^3/uL (4.4-10.8)
[2023-09-16 04:55] LABS: Chloride 101 mmol/L (98-107); Potassium 3.1 mmol/L (3.5-5.1); Sodium 138 mmol/L (136-145)
[2023-09-16 04:56] LABS: Anion Gap 8 (5-15); Calcium 9.7 mg/dL (8.7-10.4); Carbon Dioxide 29 mmol/L (20-30)
[2023-09-16 05:02] LABS: BUN/Creatinine Ratio 20.9 (10.0-20.0); Glucose 159 mg/dL (74-106); Magnesium 2.4 mg/dL (1.6-2.6)
[2023-09-16 05:09] LABS: Blood Urea Nitrogen 29 mg/dL (9-23)
[2023-09-16] MEDS: POTASSIUM CHL 20MEQ/100ML 100 ML IV ONE (07:48)
[2023-09-16] MEDS ORDERED: POTASSIUM CHL 20MEQ/100ML 100 ML IV SCH (08:45)
[2023-09-16] MEDS: POTASSIUM EFFERVESENT TAB 25 MEQ PO ONE (09:03)
[2023-09-16 16:59] LABS: Basophils # (auto) 0.1 10 ^3/uL (0-0.2); Basophils % (auto) 0.5 % (0.0-2.0); Eosinophils # (auto) 0.1 10 ^3/uL (0-0.8); Eosinophils % (auto) 0.3 % (0.0-7.0); Hematocrit 44.2 % (41.0-53.0); Hemoglobin 14.1 g/dL (13.5-17.5); Lymphocytes # (auto) 0.5 10 ^3/uL (0.4-5.4); Lymphocytes % (auto) 2.4 % (10.0-50.0); Mean Corpuscular Hgb Conc. 31.9 g/dL (32.0-36.0); Mean Corpuscular Volume 90.7 fL (80.0-100.0); Monocytes # (auto) 1.5 10 ^3/uL (0-1.3); Monocytes % (auto) 7.8 % (0.0-12.0); Neutrophils # (auto) 16.9 10 ^3/uL (1.6-8.6); Red Blood Cells 4.88 10^6/uL (4.5-5.90); Red Cell Distribution Width 18.6 % (11.8-14.3)
[2023-09-16] MEDS: LORazepam 2MG/ML-1ML VIAL IV PRN (21:58)
[2023-09-17] VITALS (32 sets, daily range): BP systolic 93–122; BP diastolic 52–85; PULSE 68–103; RESP 10–37; TEMP 96.9–98.1; O2SAT 92–99
[2023-09-17 04:46] LABS: Basophils # (auto) 0 10 ^3/uL (0-0.2); Basophils % (auto) 0.2 % (0.0-2.0); Eosinophils # (auto) 0.3 10 ^3/uL (0-0.8); Eosinophils % (auto) 1.7 % (0.0-7.0); Hemoglobin 13.9 g/dL (13.5-17.5); Lymphocytes % (auto) 6.5 % (10.0-50.0); Mean Corpuscular Hemoglobin 29.1 pg (28.0-32.0); Mean Corpuscular Hgb Conc. 32.3 g/dL (32.0-36.0); Mean Corpuscular Volume 90.1 fL (80.0-100.0); Monocytes # (auto) 1.3 10 ^3/uL (0-1.3); Monocytes % (auto) 8.5 % (0.0-12.0); Neutrophils # (auto) 12.9 10 ^3/uL (1.6-8.6); Neutrophils % (auto) 83.1 % (37.0-80.0); Red Blood Cells 4.77 10^6/uL (4.5-5.90); Red Cell Distribution Width 18.7 % (11.8-14.3); White Blood Cell 15.5 10^3/uL (4.4-10.8)
[2023-09-17 05:00] LABS: Anion Gap 4 (5-15); Carbon Dioxide 37 mmol/L (20-30); Chloride 97 mmol/L (98-107); Potassium 3.1 mmol/L (3.5-5.1); Sodium 138 mmol/L (136-145)
[2023-09-17 05:01] LABS: Calcium 9.6 mg/dL (8.7-10.4)
[2023-09-17 05:06] LABS: BUN/Creatinine Ratio 29.2 (10.0-20.0); Magnesium 2.4 mg/dL (1.6-2.6)
[2023-09-17 05:10] LABS: Blood Urea Nitrogen 40 mg/dL (9-23); Glucose 113 mg/dL (74-106)
[2023-09-17] MEDS: POTASSIUM EFFERVESENT TAB 25 MEQ PO ONE (08:00)
[2023-09-17] MEDS: SPIRONOLACTONE 25 MG TAB PO SCH (10:00)
[2023-09-17] MEDS: FUROSEMIDE 40 MG/4 ML VIAL IV SCH (10:00)
[2023-09-17] MEDS: IPRATROPIUM BROM 0.5 MG/2.5ML INH SOL NEB SCH (19:41)
[2023-09-17] MEDS: BUDESONIDE (INHALATION) 0.5 MG/2 ML NEB NEB SCH (19:41)
[2023-09-17] MEDS: LEVALBUTEROL HCL 1.25 MG/3 ML NEB NEB SCH (19:41)
[2023-09-17] MEDS: APIXABAN 5 MG TAB PO SCH (21:06)
[2023-09-18] VITALS (16 sets, daily range): BP systolic 100–107; BP diastolic 59–81; PULSE 70–112; RESP 18–20; TEMP 36.6; O2SAT 91–100
[2023-09-18 06:46] LABS: Basophils # (auto) 0 10 ^3/uL (0-0.2); Basophils % (auto) 0.2 % (0.0-2.0); Eosinophils # (auto) 0.5 10 ^3/uL (0-0.8); Eosinophils % (auto) 4.2 % (0.0-7.0); Hemoglobin 14.5 g/dL (13.5-17.5); Lymphocytes # (auto) 0.7 10 ^3/uL (0.4-5.4); Lymphocytes % (auto) 5.5 % (10.0-50.0); Mean Corpuscular Hemoglobin 29.6 pg (28.0-32.0); Mean Corpuscular Hgb Conc. 32.9 g/dL (32.0-36.0); Mean Corpuscular Volume 90.2 fL (80.0-100.0); Monocytes # (auto) 1.1 10 ^3/uL (0-1.3); Monocytes % (auto) 8.9 % (0.0-12.0); Neutrophils # (auto) 10.3 10 ^3/uL (1.6-8.6); Neutrophils % (auto) 81.2 % (37.0-80.0); Nucleated Red Blood Cells % 0.1 %; Red Blood Cells 4.88 10^6/uL (4.5-5.90); Red Cell Distribution Width 18.4 % (11.8-14.3); White Blood Cell 12.6 10^3/uL (4.4-10.8)
[2023-09-18 06:57] LABS: Alanine Aminotransferase 12 U/L (7-40); Alkaline Phosphatase 51 U/L (46-116); Anion Gap 5 (5-15); Aspartate Aminotransferase 21 U/L (13-40); BUN/Creatinine Ratio 23.5 (10.0-20.0); Bilirubin, Total 1.9 mg/dL (0.2-1.0); Blood Urea Nitrogen 31 mg/dL (9-23); Calcium 9.6 mg/dL (8.7-10.4); Carbon Dioxide 34 mmol/L (20-30); Chloride 97 mmol/L (98-107); Glucose 142 mg/dL (74-106); Magnesium 2.5 mg/dL (1.6-2.6); Potassium 3.5 mmol/L (3.5-5.1); Sodium 136 mmol/L (136-145); Total Protein 7.3 g/dL (5.7-8.2)
[2023-09-18 07:26] LABS: INR 1.53 (0.9-1.15); Partial Thromboplastin Time 36.2 SEC (24.5-34.5); Prothrombin Time 15.6 sec (9.3-11.8)
[2023-09-18] MEDS: EMPAGLIFLOZIN 10 MG TAB PO SCH (09:50)
[2023-09-18] MEDS ORDERED: SPIR25TA PO (11:54)
== END 2023-09-18 17:20 | disposition home or self-care (01) | DRG 291 ==
LOC: ER 18:07 → EDBD 18:07 → TELE 21:53 → DOU IN ICU 21:55 → OVERFLOW 23:21 → TELE 23:22 → DOU IN ICU 09-15 02:05 → TELE-WESTW 09-17 16:52
PROVIDERS: ADMIT Internal Medicine Pulmonary Disease; ATTEND Internal Medicine Pulmonary Disease
PROC: 5A09357 Assistance with Respiratory Ventilation, Less than 24 Consecutive Hours, Continuous Positive Airway Pressure (ICD-10-PCS; principal; 2023-09-14)
DX: I11.0 Hypertensive heart disease with heart failure (principal); I50.23 Acute on chronic systolic (congestive) heart failure; J96.01 Acute respiratory failure with hypoxia; N17.0 Acute kidney failure with tubular necrosis; J44.1 Chronic obstructive pulmonary disease with (acute) exacerbation; R57.9 Shock, unspecified; D68.32 Hemorrhagic disorder due to extrinsic circulating anticoagulants; Z20.822 Contact with and (suspected) exposure to COVID-19; R04.0 Epistaxis; T45.525A Adverse effect of antithrombotic drugs, initial encounter; I25.10 Atherosclerotic heart disease of native coronary artery without angina pectoris; K21.9 Gastro-esophageal reflux disease without esophagitis; E11.65 Type 2 diabetes mellitus with hyperglycemia; E78.5 Hyperlipidemia, unspecified; I25.2 Old myocardial infarction; I35.0 Nonrheumatic aortic (valve) stenosis; Z95.5 Presence of coronary angioplasty implant and graft; E87.6 Hypokalemia; Z95.1 Presence of aortocoronary bypass graft; Z87.891 Personal history of nicotine dependence; Z83.3 Family history of diabetes mellitus; Z82.49 Family history of ischemic heart disease and other diseases of the circulatory system
CPT/HCPCS: 36415; 36600; 71045; 80048; 80053; 81001; 82805; 82962; 83605; 83735; 83880; 84132; 84484; 85025; 85610; 85730; 87040; 87081; 87086; 87426; 87804; 93005; 93306; 94640; 94660; 97163; G0378; J1815; J2405; J3480; J3490